=== PATIENT | male | born 1945 | race Caucasian/White ===

== ENCOUNTER 2019-08-14 08:49 | Outpatient (REF) | payer MEDICARE, SELFPAY ==
[2019-08-14 19:44] LABS: ALT 35 U/L (16-63); Anion Gap 6.7 mmol/L (3-11); BUN 23 mg/dL (7-18); CO2 27.3 mmol/L (21.0-32.0); CREATININE 0.93 mg/dL (0.70-1.30); Calcium 8.9 mg/dL (8.5-10.1); Calculated LDL 154 mg/dL (<100); Chloride 107 mmol/L (98-107); Cholesterol 210 mg/dL (<200); Glucose 108 mg/dL (74-106); HDL Cholesterol 34 mg/dL (40-60); Sodium 141 mmol/L (136-145); Triglyceride 110 mg/dL (<150)
[2019-08-14 20:02] LABS: Creatine Kinase 244 U/L (39-308)
== END 2019-08-14 09:09 ==
LOC: NCHCN 08:49
PROVIDERS: PCP Physician Assistant; Visit Provider Internal Medicine
DX: I10 Essential (primary) hypertension (principal); E78.5 Hyperlipidemia, unspecified
CPT/HCPCS: 80048; 80061; 82550; 84460

== ENCOUNTER 2020-02-18 18:33 | Outpatient (REF) | payer MEDICARE, MEDICAID, SELFPAY ==
[2020-02-18 20:23] LABS: Abs Immature Grans 0.01 10^3/uL (0.0-0.06); Absolute Basophil Count 0.06 10^3/uL (0.0-0.2); Absolute Eosinophil Count 0.25 10^3/uL (0.0-0.7); Absolute Lymphocyte Count 1.33 10^3/uL (1.2-3.4); Absolute Monocyte Count 0.47 10^3/uL (0.1-0.8); Absolute Neutrophil Count 3.88 10^3/uL (1.2-6.7); Eosinophils % 4.2; HCT 47.5 % (40.0-50.0); HGB 15.1 g/dL (13.5-17.5); Immature Grans % 0.2; Lymphocytes % 22.2; MCH 26.5 pg (27.0-33.0); MCHC 31.8 % (32.0-36.0); MCV 83.3 fL (80-95); MPV 10.4 fL (8.0-11.0); Monocytes % 7.8; Neutrophils % 64.6; Nucleated RBC 0 %; Platelet Count 239 10^3/uL (130-400); RDW-SD 42.5 fL
[2020-02-18 20:48] LABS: ALT 32 U/L (16-63); AST 20 U/L (15-37); Albumin 3.9 g/dL (3.4-5.0); Alkaline Phosphatase 72 U/L (46-116); Anion Gap 3.5 mmol/L (3-11); BUN 21 mg/dL (7-18); Bilirubin, Total 0.5 mg/dL (0.2-1.0); CO2 28.5 mmol/L (21.0-32.0); CREATININE 1.02 mg/dL (0.70-1.30); Chloride 105 mmol/L (98-107); Glucose 104 mg/dL (74-106); Potassium 4.5 mmol/L (3.5-5.1); Sodium 137 mmol/L (136-145); Total Protein 7.1 g/dL (6.4-8.2)
[2020-02-18 21:05] LABS: Calculated LDL 178 mg/dL (<100); Cholesterol 242 mg/dL (<200); HDL Cholesterol 32 mg/dL (40-60); Triglyceride 164 mg/dL (<150)
[2020-02-20 09:49] LABS: Hepatitis C Ab w Rflx HCV PCR Negative (Negative)
== END 2020-02-18 18:53 ==
LOC: NCHCN 18:33
PROVIDERS: PCP Physician Assistant; Visit Provider Physician Assistant
DX: E78.5 Hyperlipidemia, unspecified (principal); I10 Essential (primary) hypertension; I25.5 Ischemic cardiomyopathy; I25.810 Atherosclerosis of coronary artery bypass graft(s) without angina pectoris; Z11.59 Encounter for screening for other viral diseases
CPT/HCPCS: 80053; 80061; 86803; 85025

== ENCOUNTER 2020-03-18 10:20 | Outpatient (CLI) | payer MEDICARE, MEDICAID, SELFPAY ==
--- NOTE | 2020-03-18 09:45 | DI.RAD_ITS ---
EXAM: XR SHOULDER RT COMPLETE 2+V CLINICAL HISTORY: BIcep ain. TECHNIQUE: 2D digital imaging was performed. COMPARISON: No exams were available for comparison FINDINGS: BONES: No acute fracture is present. No bony destructive lesion is seen. There is prominent spurring at the undersurface of the acromion. There is also spurring at the AC joint and glenoid. Glenohumer al joint space is well maintained. Spurring is noted at the greater and lesser tuberosities. SOFT TISSUE: Normal. IMPRESSION: Degenerative changes. DATA REPOSITORY: RADIATION DOSE DELIVERED:
== END 2020-03-18 10:40 ==
PROVIDERS: PCP Physician Assistant; Referring Provider Physician Assistant; Visit Provider Student in an Organized Health Care Education/Training Program
DX: M77.8 Other enthesopathies, not elsewhere classified (principal); M25.511 Pain in right shoulder; S46.211A Strain of muscle, fascia and tendon of other parts of biceps, right arm, initial encounter; X50.0XXA Overexertion from strenuous movement or load, initial encounter; I10 Essential (primary) hypertension
CPT/HCPCS: 99203; 73030

== ENCOUNTER 2020-04-30 20:20 | Outpatient (REF) | payer MEDICARE, MEDICAID, SELFPAY ==
[2020-05-02 14:49] LABS: COVID-19 RT-PCR UVMMC Result Negative (Negative)
== END 2020-04-30 20:21 | disposition home or self-care (01) ==
LOC: NCHCN 20:20
PROVIDERS: PCP Physician Assistant; Visit Provider Physician Assistant
DX: Z20.822 Contact with and (suspected) exposure to COVID-19 (principal); J06.9 Acute upper respiratory infection, unspecified
CPT/HCPCS: U0003

== ENCOUNTER 2020-06-06 09:52 | Outpatient (CLI) | payer MEDICARE, MEDICAID, SELFPAY ==
--- NOTE | 2020-06-06 15:35 | DI.RAD_ITS ---
EXAM: XR ELBOW LT COMPLETE CLINICAL HISTORY: HARD FALL ON ICE, PAIN TECHNIQUE: COMPARISON: No exams were available for comparison FINDINGS: Three views were obtained. There is somewhat prominent anterior humeral fat pad raising the possibil ity of an elbow joint effusion or hemarthrosis. There are small marginal osteophytes at multiple sit es involving the joints of the elbow and small olecranon osteophyte is noted. No definite fracture i dentified, however the presence of a joint effusion would raise the possibility an occult intra-artic ular fracture. Follow-up radiographs recommended in 10-14 days if symptoms persist. IMPRESSION: RADIATION DOSE DELIVERED: Total DLP
== END 2020-06-06 10:12 ==
PROVIDERS: PCP Physician Assistant; Visit Provider Internal Medicine
DX: M25.522 Pain in left elbow (principal)
CPT/HCPCS: 73080

== ENCOUNTER 2020-08-14 10:07 | Outpatient (REF) | payer MEDICARE, SELFPAY ==
[2020-08-14 18:45] LABS: ALT 32 U/L (16-63); AST 21 U/L (15-37); Albumin 3.7 g/dL (3.4-5.0); Alkaline Phosphatase 70 U/L (46-116); Anion Gap 5.6 mmol/L (3-11); BUN 27 mg/dL (7-18); Bilirubin, Total 0.7 mg/dL (0.2-1.0); CO2 27.4 mmol/L (21.0-32.0); Calcium 8.9 mg/dL (8.5-10.1); Calculated LDL 78 mg/dL (<100); Chloride 107 mmol/L (98-107); Cholesterol 127 mg/dL (<200); Glucose 96 mg/dL (74-106); HDL Cholesterol 36 mg/dL (40-60); Potassium 5.2 mmol/L (3.5-5.1); Sodium 140 mmol/L (136-145); Total Protein 6.7 g/dL (6.4-8.2); Triglyceride 69 mg/dL (<150)
== END 2020-08-14 10:08 | disposition home or self-care (01) ==
LOC: NCHCN 10:07
PROVIDERS: PCP Physician Assistant; Visit Provider Physician Assistant
DX: I10 Essential (primary) hypertension (principal); E78.5 Hyperlipidemia, unspecified
CPT/HCPCS: 80053; 80061

== ENCOUNTER 2021-03-12 11:42 | Outpatient (REF) | payer MEDICARE, MEDICAID, SELFPAY ==
[2021-03-12 19:29] LABS: ALT 40 U/L (16-63); AST 21 U/L (15-37); Albumin 3.8 g/dL (3.4-5.0); Alkaline Phosphatase 76 U/L (46-116); Anion Gap 7.3 mmol/L (3-11); BUN 20 mg/dL (7-18); Bilirubin, Total 0.6 mg/dL (0.2-1.0); CO2 27.7 mmol/L (21.0-32.0); CREATININE 0.9 mg/dL (0.70-1.30); Calcium 8.9 mg/dL (8.5-10.1); Calculated LDL 94 mg/dL (<100); Chloride 104 mmol/L (98-107); Cholesterol 148 mg/dL (<200); Glucose 108 mg/dL (74-106); HDL Cholesterol 39 mg/dL (40-60); Potassium 4.6 mmol/L (3.5-5.1); Sodium 139 mmol/L (136-145); Total Protein 6.8 g/dL (6.4-8.2); Triglyceride 76 mg/dL (<150)
[2021-03-13 17:23] LABS: PSA, Screening 3.2 ng/mL (0.0-6.5)
== END 2021-03-12 11:43 | disposition home or self-care (01) ==
LOC: NCHCN 11:42
PROVIDERS: PCP Physician Assistant; Visit Provider Nurse Practitioner Family
DX: E78.5 Hyperlipidemia, unspecified (principal); N40.0 Benign prostatic hyperplasia without lower urinary tract symptoms; I10 Essential (primary) hypertension; I25.5 Ischemic cardiomyopathy; Z12.5 Encounter for screening for malignant neoplasm of prostate
CPT/HCPCS: 80053; 80061; 84153

== ENCOUNTER 2021-08-27 09:25 | Emergency (ER) | payer MEDICARE, MEDICAID, SELFPAY ==
[2021-08-27 09:36] VITALS: BP 131/67; PULSE 68; RESP 14; TEMP 36.6; O2SAT 98
--- NOTE | 2021-08-27 09:42 | ED.GENADUL_ITS ---
Discharge Plan Disposition Patient Disposition: HOME Condition: Stable Discharge Details Clinical Impression: Closed fracture of fifth metacarpal bone of left hand Primary Care Provider: James Sierra ED Provider: Vanessa Nash Home Meds and New Rx's Prescriptions: Continued aspirin [Adult Low Dose Aspirin] 81 mg tablet,delayed release (DR/EC) 81 mg PO DAILY tamsulosin 0.4 mg capsule 0.4 mg PO DAILY metoprolol succinate 25 mg tablet extended release 24 hr 25 mg PO BID atorvastatin 40 mg tablet 40 mg PO DAILY venlafaxine [Effexor XR] 150 mg capsule,extended release 24hr 150 mg PO DAILY lisinopril 5 mg tablet 5 mg PO DAILY Discharge Instructions Instructions: Hand Fracture (ED) Additional Instructions: Your x-ray revealed a fracture of your fifth metacarpal bone within your left hand. This was reviewed with orthopedics and they recommended a splint which was placed here in the emergency department. Rest, ice, and elevate the affected area as much as possible. Alternate tylenol and motrin as needed and directed for pain. Call the orthopedist today to schedule a follow-up appointment for reevaluation. Return immediately to the emergency department if you develop any worsening or new concerning symptoms. Referrals: Jaspreet Lam MD [ [facility] STAFF PHYSICIAN] - Discharge Data Discharge Physician: Vanessa Nash Medical Decision Making 76-year-old male presents with left hand injury sustained when jacking up a trailer and the brian came down crushing his hand yesterday. Patient has edema and ecchymosis noted to the palmar and dorsal hand. He has an abrasion on the left lateral wrist and small approximated superficial lacerations with a small hematomas on the palmar hand. He is neurovascularly intact without deformity. He declines pain medication here. Patient referred for x-rays which noted a fracture of the fifth metacarpal. This was reviewed with orthopedics who noted that this fracture is nondisplaced and recommended an ulnar gutter splint which was placed at bedside. Sling also provided. Patient placed on orthopedic follow-up list. Instructed on the importance of RICE. Usual and customary return precautions given prior to discharge. Medical Records Medical records reviewed: Yes I reviewed the patient's medical records. Imaging Data Radiologic Study: Radiologist's impression: XR HAND LT COMPLETE CLINICAL HISTORY: ? s/p crush injury, r/o fx metacarpals.? TECHNIQUE:? 2D digital imaging was performed.? Three views. COMPARISON:? CR XR WRIST LT COMPLETE from 08/27/2021 FINDINGS: BONES: Fracture at the base of the 5th metacarpal with mild angulation.? No visible extension to the articular surface.? No additional fractures seen..? No bony destructive lesion is seen. JOINTS: No dislocation present. ? Degenerative changes of interphalangeal joints and at the 1st carpal metacarpal joint. SOFT TISSUE: Posterior swelling.? Vascular calcifications IMPRESSION: Fracture at the base of the 5th metacarpal. XR WRIST LT COMPLETE CLINICAL HISTORY: ? s/p crush injury, r/o fx.? TECHNIQUE:? 2D digital imaging was performed.? Three views. COMPARISON:? No exams were available for comparison FINDINGS: BONES:? fracture at the base of the 5th metacarpal with some ventral angulation but no significant displacement.? No visible extension to the articular surface..? No bony destructive lesion is seen. JOINTS: Degenerative changes at 1st carpal metacarpal joint.? Some lateral subluxation of the 1st metacarpal.? SOFT TISSUE: Posterior swelling.? Vascular calcifications. IMPRESSION: Fracture at the base of the 5th metacarpal.? HPI General Mode of arrival: ambulatory . Date/Time Provider Initiated Documentation: 08/27/21 09:41 . Limitations to Documentation: no limitations . Information obtained by: patient . HPI Narrative: Patient is a 76-year-old male with a history of hypertension, hyperlipidemia, NSTEMI, cardiomyopathy, coronary artery bypass graft surgery presents with left hand injury sustained yesterday when jacking up a trailer and the brian came back down on his hand. He states it was approximately 100 pounds of weight. He states he took aspirin and Aleve this morning. He states he thinks his tetanus is up-to-date. Related Data Home Medications Medication Instructions Recorded Confirmed aspirin 81 mg tablet,delayed 81 mg PO DAILY 03/18/20 03/18/20 release (Adult Low Dose Aspirin) atorvastatin 40 mg tablet 40 mg PO DAILY 03/18/20 03/18/20 lisinopril 5 mg tablet 5 mg PO DAILY 03/18/20 03/18/20 metoprolol succinate 25 mg 25 mg PO BID 03/18/20 03/18/20 tablet,extended release 24 hr tamsulosin 0.4 mg capsule 0.4 mg PO DAILY 03/18/20 03/18/20 venlafaxine 150 mg 150 mg PO DAILY 03/18/20 03/18/20 capsule,extended release 24 hr (Effexor XR) Allergies Allergy/AdvReac Type Severity Reaction Status Date / Time bupropion [From Wellbutrin] Allergy Unverified 08/27/21 09:40 General Stated Complaint: Orthopedic FERNIE: 4 Review of Systems All systems reviewed & are unremarkable except as noted in HPI and below Constitutional Constitutional: Reports as per HPI, Denies chills and Denies fever(s) Eyes Eyes: Denies blurry vision ENT Ears, Nose, Mouth, and Throat: Denies dizziness, Denies sore throat and Denies throat swelling Cardiovascular Cardiovascular: Denies chest pain and Denies dyspnea Respiratory Respiratory: Denies cough and Denies dyspnea Gastrointestinal Gastrointestinal: Denies abdominal pain, Denies diarrhea and Denies vomiting Genitourinary Genitourinary: Denies hematuria and Denies dysuria Musculoskeletal Musculoskeletal: Denies back pain and Denies numbness Integumentary/Breasts Skin/Breast: Denies lesions and Denies rash Neurologic Neurologic: Denies dizziness, Denies localized weakness and Denies numbness Allergic/Immunologic Allergic/Immunologic: Denies throat swelling PFSH All Active Problems (Updated 08/27/21 @ 10:54 by Vanessa Nash DO) Closed fracture of fifth metacarpal bone of left hand (Acute) Rupture of right proximal biceps tendon (Acute 03/07/20) Depression with anxiety (Acute) Hypertension (Chronic) Hx of non-ST elevation myocardial infarction (NSTEMI) (Acute) BPH (benign prostatic hyperplasia) (Chronic) Status post coronary artery bypass graft (Acute) Cardiomyopathy (Acute) Hyperlipidemia (Acute) Social History Smoking/Tobacco Use Status: Never Smoking risk assessment performed?: Yes Alcohol Intake: current Alcohol Intake frequency: a few times a month Alcohol type: beer Drug use: Socially Substance use type: marijuana Current gender identity: male Do you feel safe at home: Yes Do you feel safe in your relationship?: Yes Exam Const General: cooperative, healthy appearing and no acute distress Orientation: alert, awake and oriented x3 HENMT Head: normal to inspection Mouth: oral mucosae normal Eyes General: appearance normal, both eyes and all related structures Neck Neck: normal visual inspection Resp Effort & Inspection: normal respiratory effort and able to speak in complete sentences Cardio Rate: regular rate Skin General skin exam: no rashes or lesions noted Neuro General: patient alert, patient awake and patient oriented x3 Motor: muscle tone normal throughout Extrem Hand/finger images: 1. Edema. 2. Edema and ecchymosis. 3. Superficial abrasion. 4. 2mm approximated superficial laceration/hematoma 5. 2mm approximated superficial laceration/hematoma Other: Left upper extremity: Tenderness to palpation overlying dorsal and palmar hand. No tenderness to palpation of fingers. Tenderness to palpation on dorsal wrist. No scaphoid tenderness. Left radial and ulnar pulses intact. No deformity. Normal ROM of Left wrist. Psych Appearance: grossly normal Affect: normal affect Course Vital Signs Vital signs: Vital Signs Temperature 97.9 F 08/27/21 09:36 Pulse 68 08/27/21 09:36 Respiratory Rate 14 08/27/21 09:36 Blood Pressure 131/67 08/27/21 09:36 Pulse Oximetry 98 08/27/21 09:36 Temperature 97.9 F 08/27/21 09:36 Temperature Source Temporal Artery Scan 08/27/21 09:36 Pulse 68 08/27/21 09:36 Respiratory Rate 14 08/27/21 09:36 Blood Pressure 131/67 08/27/21 09:36 Blood Pressure Position Sitting 08/27/21 09:36 Pulse Oximetry 98 08/27/21 09:36 Oxygen Delivery Method Room Air 08/27/21 09:36 Oxygen Flow Rate 0 08/27/21 09:36 Pain Level 2 08/27/21 09:36 Comment 08/27/21 09:36
--- NOTE | 2021-08-27 10:03 | DI.RAD_ITS ---
Exam(s) XR HAND LT COMPLETE EXAM: XR HAND LT COMPLETE CLINICAL HISTORY: s/p crush injury, r/o fx metacarpals. TECHNIQUE: 2D digital imaging was performed. Three views. COMPARISON: CR XR WRIST LT COMPLETE from 08/27/2021 FINDINGS: BONES: Fracture at the base of the 5th metacarpal with mild angulation. No visible extension to the articular surface. No additional fractures seen.. No bony destructive lesion is seen. JOINTS: No dislocation present. Degenerative changes of interphalangeal joints and at the 1st carpa l metacarpal joint. SOFT TISSUE: Posterior swelling. Vascular calcifications IMPRESSION: Fracture at the base of the 5th metacarpal. DATA REPOSITORY: RADIATION DOSE DELIVERED:
--- NOTE | 2021-08-27 10:03 | DI.RAD_ITS ---
Exam(s) XR WRIST LT COMPLETE EXAM: XR WRIST LT COMPLETE CLINICAL HISTORY: s/p crush injury, r/o fx. TECHNIQUE: 2D digital imaging was performed. Three views. COMPARISON: No exams were available for comparison FINDINGS: BONES: fracture at the base of the 5th metacarpal with some ventral angulation but no significant di splacement. No visible extension to the articular surface.. No bony destructive lesion is seen. JOINTS: Degenerative changes at 1st carpal metacarpal joint. Some lateral subluxation of the 1st met acarpal. SOFT TISSUE: Posterior swelling. Vascular calcifications. IMPRESSION: Fracture at the base of the 5th metacarpal. DATA REPOSITORY: RADIATION DOSE DELIVERED:
[2021-08-27 11:02] VITALS: PULSE 60; RESP 14; O2SAT 99
== END 2021-08-27 11:03 | disposition home or self-care (01) ==
PROVIDERS: Emergency Provider Physician Assistant; PCP Nurse Practitioner Family
DX: S62.397A Other fracture of fifth metacarpal bone, left hand, initial encounter for closed fracture (principal); W24.0XXA Contact with lifting devices, not elsewhere classified, initial encounter
CPT/HCPCS: 29125; 90471; 99284; 73110; 73130; 99283

== ENCOUNTER 2021-09-09 08:44 | Outpatient (CLI) | payer MEDICARE, MEDICAID, SELFPAY ==
--- NOTE | 2021-09-09 08:30 | DI.RAD_ITS ---
Exam(s) XR HAND LT COMPLETE EXAM: XR HAND LT COMPLETE CLINICAL HISTORY: L hand fx. TECHNIQUE: 2D digital imaging was performed. Three views. COMPARISON: CR XR HAND LT COMPLETE from 08/27/2021 FINDINGS: BONES: There has been no change in the alignment of the previously noted fracture at the base of the 5th metacarpal.. No bony destructive lesion is seen. JOINTS: No dislocation present. SOFT TISSUE: Decreased soft tissue swelling compared to prior. IMPRESSION: Stable appearance of fracture of the proximal 5th metacarpal. DATA REPOSITORY: RADIATION DOSE DELIVERED:
== END 2021-09-09 08:45 | disposition home or self-care (01) ==
LOC: DIORS 08:44
PROVIDERS: PCP Internal Medicine; Referring Provider Internal Medicine; Visit Provider Physician Assistant
DX: S62.307A Unspecified fracture of fifth metacarpal bone, left hand, initial encounter for closed fracture (principal); X58.XXXA Exposure to other specified factors, initial encounter
CPT/HCPCS: 99213; 73130

== ENCOUNTER 2021-09-20 10:05 | Inpatient (IN) | payer MEDICARE, MEDICAID, SELFPAY ==
[2021-09-20] VITALS (8 sets, daily range): BP systolic 106–171; BP diastolic 60–94; PULSE 73–108; RESP 16–20; TEMP 36.7–39; O2SAT 95–97
--- NOTE | 2021-09-20 12:05 | ED.GENADUL_ITS ---
Discharge Plan Disposition Patient Disposition: [facility] INPATIENT Condition: Serious Discharge Details Clinical Impression: Cellulitis of arm, left Primary Care Provider: Jacky Gil ED Provider: Bean Perez [place] Meds and New Rx's Prescriptions: No Action aspirin [Adult Low Dose Aspirin] 81 mg tablet,delayed release (DR/EC) 81 mg PO DAILY tamsulosin 0.4 mg capsule 0.4 mg PO DAILY metoprolol succinate 25 mg tablet extended release 24 hr 25 mg PO BID atorvastatin 40 mg tablet 40 mg PO DAILY venlafaxine [Effexor XR] 150 mg capsule,extended release 24hr 150 mg PO DAILY lisinopril 5 mg tablet 5 mg PO DAILY Medical Decision Making This is a 76-year-old, [id number], tetanus status up-to-date, presenting to the ER for left arm infection that he sustained a few days ago. In the waiting room he developed rigors and a fever. Clinically this appears to be a cellulitis secondary to central wound with associated bursitis, low suspicion for acute osteomyelitis, septic joint or septic bursitis. Plan is to obtain a septic work-up, give IV fluid and IV Rocephin once blood cultures are obtained. Will obtain x-ray as well. Will provide 1 g p.o. Tylenol Laboratory values reveal white blood cell count of 14.56 absolute neutrophils 12.41, lactate 1.4 electrolytes unremarkable, normal renal function, ESR 17, CRP 7.66, COVID-negative. Chest x-ray reveals soft tissue swelling. Case discussed with orthopedics, Dr. Valle. He was able to review the case as well as images of the arm and elbow. He stated to treat with IV antibiotics and admit to our hospitalist service. He does not feel this is surgical at this time. MRI if symptoms or not improving in the near future. Case was then discussed with Dr. Weaver who is agreeable to admission and recommends giving a second gram of Rocephin as well as initiating vancomycin. Both of these antibiotics were given in the ER. This documentation was generated using [employer] system, please disregard any oddities of phrase or misspellings. Medical Records Medical records reviewed: Yes I reviewed the patient's medical records. Imaging Data Radiologic Study: Attestation: I personally reviewed and interpreted this imaging study as follows: Imaging: X-Ray Radiologist's impression: PROCEDURE INFORMATION: Exam: XR Left Elbow Exam date and time: 09/20/2021 1:41 PM Age: 76 years old Clinical indication: Other: Injury 3 days ago, now infected TECHNIQUE: Imaging protocol: Radiologic exam of the Left elbow. Views: 3 or more views. COMPARISON: CR XR ELBOW LT COMPLETE 04/10/2020 15:32 FINDINGS: Bones/joints: No acute fracture or dislocation. No joint effusion. Soft tissues: Extensive soft tissue swelling medial and posterior aspect of the elbow and lower arm. IMPRESSION: 1. No evidence for acute bony injury. If clinical symptoms persist recommend followup film in 7-10 days. 2. Marked soft tissue swelling. Lab Data Lab results reviewed: Yes I reviewed the patient's lab results. Labs: 09/20/21 12:30 Blood Blood Culture - Pending 09/20/21 12:45 Blood Blood Culture - Pending Laboratory Tests Range/Units 09/20/21 09/20/21 09/20/21 12:45 12:45 12:45 WBC (4.4-10.8) 10^3/uL RBC (4.36-5.78) 10^6/uL Hgb (13.5-17.5) g/dL Hct (40.0-50.0) % MCV (80-95) fL MCH (27.0-33.0) pg MCHC (32.0-36.0) % RDW (11.8-14.1) % Plt Count (130-400) 10^3/uL MPV (8.0-11.0) fL Immature Gran % Neutrophils % Lymphocytes % Monocytes % Eosinophils % Basophils % Nucleated RBC % (0.0-0.3) % Absolute Neutrophils (1.2-6.7) 10^3/uL Absolute Lymphocytes (1.2-3.4) 10^3/uL Absolute Monocytes (0.1-0.8) 10^3/uL Absolute Eosinophils (0.0-0.7) 10^3/uL Absolute Basophils (0.0-0.2) 10^3/uL ESR (0-20) mm/hr 17 VBG Lactate (0.6-1.4) mmol/L 1.4 Sodium (136-145) mmol/L 136 Potassium (3.5-5.1) mmol/L 4.5 Chloride (98-107) mmol/L 102 Carbon Dioxide (21.0-32.0) mmol/L 25.0 Anion Gap (3-11) mmol/L 9.0 BUN (7-18) mg/dL 23 H Creatinine (0.70-1.30) mg/dL 1.0 Estimated GFR/1.73 m2 (mL/min/1.73m2) >= 60.00 Glucose (74-106) mg/dL 96 Calcium (8.5-10.1) mg/dL 8.7 Total Bilirubin (0.2-1.0) mg/dL 0.8 AST (15-37) U/L 24 ALT (16-63) U/L 37 Alkaline Phosphatase (46-116) U/L 80 C-Reactive Protein (0.0-0.3) mg/dL 7.66 H Total Protein (6.4-8.2) g/dL 7.5 Albumin (3.4-5.0) g/dL 3.8 COVID-19 Source SARS-CoV-2 (PCR) (Negative) Add-On Test Request Range/Units 09/20/21 09/20/21 09/20/21 12:45 12:50 14:48 WBC (4.4-10.8) 10^3/uL 14.56 H RBC (4.36-5.78) 10^6/uL 5.18 Hgb (13.5-17.5) g/dL 13.9 Hct (40.0-50.0) % 43.0 MCV (80-95) fL 83 MCH (27.0-33.0) pg 26.8 L MCHC (32.0-36.0) % 32.3 RDW (11.8-14.1) % 14.7 H Plt Count (130-400) 10^3/uL 234 MPV (8.0-11.0) fL 9.9 Immature Gran % 0.5 Neutrophils % 85.2 Lymphocytes % 5.7 Monocytes % 7.3 Eosinophils % 1.0 Basophils % 0.3 Nucleated RBC % (0.0-0.3) % 0.0 Absolute Neutrophils (1.2-6.7) 10^3/uL 12.41 H Absolute Lymphocytes (1.2-3.4) 10^3/uL 0.83 L Absolute Monocytes (0.1-0.8) 10^3/uL 1.06 H Absolute Eosinophils (0.0-0.7) 10^3/uL 0.15 Absolute Basophils (0.0-0.2) 10^3/uL 0.04 ESR (0-20) mm/hr VBG Lactate (0.6-1.4) mmol/L Sodium (136-145) mmol/L Potassium (3.5-5.1) mmol/L Chloride (98-107) mmol/L Carbon Dioxide (21.0-32.0) mmol/L Anion Gap (3-11) mmol/L BUN (7-18) mg/dL Creatinine (0.70-1.30) mg/dL Estimated GFR/1.73 m2 (mL/min/1.73m2) Glucose (74-106) mg/dL Calcium (8.5-10.1) mg/dL Total Bilirubin (0.2-1.0) mg/dL AST (15-37) U/L ALT (16-63) U/L Alkaline Phosphatase (46-116) U/L C-Reactive Protein (0.0-0.3) mg/dL Total Protein (6.4-8.2) g/dL Albumin (3.4-5.0) g/dL COVID-19 Source Nasal/Nares SARS-CoV-2 (PCR) (Negative) Negative Add-On Test Request TNP HPI General Mode of arrival: ambulatory . Date/Time Provider Initiated Documentation: 09/20/21 10:26 . Limitations to Documentation: no limitations . Information obtained by: patient . History of Present Illness 76 year old M presents to the emergency department with the chief complaint of L elbow infection, described as moderate, with intensity rated at 5. Quality is described as aching, and is localized to the left and upper extremity. Patient reports no radiation. Patient started experiencing this day(s) (3) and it has been other (worsening). Immobilization improves symptom(s), Movement worsens symptoms . Patient notes fever/chills (chills) and weakness (generalized). Patient did receive the following treatments prior to arrival, none Related Data Home Medications Medication Instructions Recorded Confirmed aspirin 81 mg tablet,delayed 81 mg PO DAILY 03/18/20 09/20/21 release (Adult Low Dose Aspirin) atorvastatin 40 mg tablet 40 mg PO DAILY 03/18/20 09/20/21 lisinopril 5 mg tablet 5 mg PO DAILY 03/18/20 09/20/21 metoprolol succinate 25 mg 25 mg PO BID 03/18/20 09/20/21 tablet,extended release 24 hr tamsulosin 0.4 mg capsule 0.4 mg PO DAILY 03/18/20 09/20/21 venlafaxine 150 mg 150 mg PO DAILY 03/18/20 09/20/21 capsule,extended release 24 hr (Effexor XR) Allergies Allergy/AdvReac Type Severity Reaction Status Date / Time bupropion [From Wellbutrin] Allergy Unverified 09/20/21 12:12 General Stated Complaint: Cellulitis FERNIE: 3 Review of Systems Constitutional Constitutional: Reports chills, Denies fatigue, Denies fever(s), Denies headache(s) and Reports weakness (Generalized) ENT Ears, Nose, Mouth, and Throat: Denies headache(s) Cardiovascular Cardiovascular: Denies chest pain Respiratory Respiratory: Denies cough Gastrointestinal Gastrointestinal: Denies abdominal pain, Denies nausea and Denies vomiting Musculoskeletal Musculoskeletal: Denies arthralgias, Denies numbness, Reports stiffness and Denies tingling Integumentary/Breasts Skin/Breast: Reports erythema Neurologic Neurologic: Denies headache(s), Denies numbness, Denies tingling and Reports weakness (Generalized) Endocrine Endocrine: Denies fatigue Hematologic/Lymphatic Hematologic/Lymphatic: Denies easy bleeding and Denies easy bruising PFSH All Active Problems Cellulitis of arm, left (Acute) Closed fracture of fifth metacarpal bone of left hand (Acute 08/27/21) Rupture of right proximal biceps tendon (Acute 03/07/20) Depression with anxiety (Acute) Hypertension (Chronic) Hx of non-ST elevation myocardial infarction (NSTEMI) (Acute) BPH (benign prostatic hyperplasia) (Chronic) Status post coronary artery bypass graft (Acute) Cardiomyopathy (Acute) Hyperlipidemia (Acute) Social History Smoking/Tobacco Use Status: Never Smoking risk assessment performed?: Yes Alcohol Intake: current Alcohol Intake frequency: a few times a month Alcohol type: beer Drug use: Socially Substance use type: marijuana Current gender identity: male Do you feel safe at home: Yes Do you feel safe in your relationship?: Yes Exam Const General: cooperative and comfortable Orientation: alert, awake and oriented x3 HENMT Head: normal to inspection, normocephalic and atraumatic Face and sinus: normal facial exam Mouth: moist mucous membranes Eyes General: appearance normal, both eyes and all related structures Conjunctivae: conjunctivae normal Neck Neck: normal visual inspection, full ROM, no meningeal signs, trachea midline and supple Resp Effort & Inspection: normal respiratory effort and able to speak in complete sentences Auscultation: clear to auscultation bilaterally Cardio Rate: regular rate Rhythm: regular rhythm Back/Spine/Pelvis Back: No back tenderness Skin General skin exam: erythema Neuro General: patient alert, patient awake, moves all extremities and no focal motor deficits Cognition: normal cognition Speech: speech normal Gait: normal gait Motor: muscle tone normal throughout Sensory Exam: no sensory deficits noted Extrem General: full ROM and capillary refill normal Other: Left arm, elbow posterior aspect with diffuse mild swelling, erythema, warmth, centrally there is a shallow wound with dried blood. There is surrounding erythema in all aspects but this is noncircumferential. Sterile markings were made. There is no lymphangitic streaking. There is no bony point tenderness, evidence of septic joint. There does appear to be some swelling associated with the olecranon bursa and there very well may be a component of bursitis but clinically no signs of a septic bursitis. Neuro, vascular, tendon intact. Psych Appearance: grossly normal Mental Status: mental status grossly normal Course Vital Signs Vital signs: Vital Signs Temperature 37.2 C 09/20/21 10:22 Pulse 73 09/20/21 10:22 Respiratory Rate 18 09/20/21 10:22 Blood Pressure 146/81 H 09/20/21 10:22 Pulse Oximetry 97 09/20/21 10:22 Temperature 37.2 C 09/20/21 10:22 Temperature Source Temporal Artery Scan 09/20/21 10:22 Pulse 73 09/20/21 10:22 Respiratory Rate 18 09/20/21 10:22 Blood Pressure 146/81 H 09/20/21 10:22 Blood Pressure Position Sitting 09/20/21 10:22 Pulse Oximetry 97 09/20/21 10:22 Oxygen Delivery Method Room Air 09/20/21 10:22 Oxygen Flow Rate 0 07/17/22 10:22
[2021-09-20 12:52] LABS: Source Nasal/Nares
[2021-09-20 12:56] LABS: Abs Immature Grans 0.08 10^3/uL (0.0-0.06); Absolute Lymphocyte Count 0.83 10^3/uL (1.2-3.4); Absolute Monocyte Count 1.06 10^3/uL (0.1-0.8); Basophils % 0.3; HGB 13.9 g/dL (13.5-17.5); Immature Grans % 0.5; Lactate 1.4 mmol/L (0.6-1.4); Lymphocytes % 5.7; MCH 26.8 pg (27.0-33.0); MCHC 32.3 % (32.0-36.0); MCV 83 fL (80-95); MPV 9.9 fL (8.0-11.0); Monocytes % 7.3; Neutrophils % 85.2; Platelet Count 234 10^3/uL (130-400); RBC 5.18 10^6/uL (4.36-5.78); RDW 14.7 % (11.8-14.1); RDW-SD 45.1 fL; WBC 14.56 10^3/uL (4.4-10.8)
[2021-09-20 13:00] LABS: Absolute Basophil Count 0.04 10^3/uL (0.0-0.2); Absolute Eosinophil Count 0.15 10^3/uL (0.0-0.7); Absolute Neutrophil Count 12.41 10^3/uL (1.2-6.7)
[2021-09-20] MEDS: Normal Saline 1,000 ML 1000 ML IV (13:00)
[2021-09-20 13:01] LABS: ESR 17 mm/hr (0-20)
[2021-09-20] MEDS: Acetaminophen 500 MG TAB 1000 MG PO (13:01)
[2021-09-20] MEDS: cefTRIAXone 1 GM/50 ML BAG 200 GM (13:10)
--- NOTE | 2021-09-20 13:15 | DI.RAD_ITS ---
Exam(s) XR ELBOW LT COMPLETE EXAM: XR ELBOW LT COMPLETE CLINICAL HISTORY: injury 3 days ago, now infected. TECHNIQUE: 2D digital imaging was performed. COMPARISON: CR XR ELBOW LT COMPLETE from 06/06/2020 FINDINGS: 3 views There is prominent soft tissue swelling over the posterior aspect of the upper arm and elbow and fore arm upper half no fractures. No elbow joint effusion noted. No radiopaque foreign body. No radiogr aphic evidence of osteomyelitis. IMPRESSION: Marked soft tissue swelling. No fractures. No radiopaque foreign body. No radiographic evidence of osteomyelitis. DATA REPOSITORY: RADIATION DOSE DELIVERED:
[2021-09-20 13:49] LABS: ALT 37 U/L (16-63); AST 24 U/L (15-37); Albumin 3.8 g/dL (3.4-5.0); Alkaline Phosphatase 80 U/L (46-116); BUN 23 mg/dL (7-18); Bilirubin, Total 0.8 mg/dL (0.2-1.0); C-Reactive Protein 7.66 mg/dL (0.0-0.3); Calcium 8.7 mg/dL (8.5-10.1); Chloride 102 mmol/L (98-107); Glucose 96 mg/dL (74-106); Potassium 4.5 mmol/L (3.5-5.1); Sodium 136 mmol/L (136-145); Total Protein 7.5 g/dL (6.4-8.2)
[2021-09-20 13:52] LABS: COVID-19 PCR Negative (Negative)
--- NOTE | 2021-09-20 14:06 | DI.VRAD_ITS ---
PROCEDURE INFORMATION: Exam: XR Left Elbow Exam date and time: 09/20/2021 1:41 PM Age: 76 years old Clinical indication: Other: Injury 3 days ago, now infected TECHNIQUE: Imaging protocol: Radiologic exam of the Left elbow. Views: 3 or more views. COMPARISON: CR XR ELBOW LT COMPLETE 04/10/2020 15:32 FINDINGS: Bones/joints: No acute fracture or dislocation. No joint effusion. Soft tissues: Extensive soft tissue swelling medial and posterior aspect of the elbow and lower arm. IMPRESSION: 1. No evidence for acute bony injury. If clinical symptoms persist recommend followup film in 7-10 days. 2. Marked soft tissue swelling. Dictated and Authenticated by: Yessy Juarez MD. Ordering:MICHELLE Del Angel MD
[2021-09-20] MEDS: cefTRIAXone 1 GM/50 ML BAG IVPB (15:08)
[2021-09-20] MEDS: VANCOMYCIN/WATER (PEG) 1.5 GM/300 ML BAG IVPB (15:50)
--- NOTE | 2021-09-20 16:41 | NUR.NOTE ---
Nursing Note: Patient arrived to Med Surg room 225. Patient states he was doing a yard sale, still had money on him. Patient states that he and the security counted it in the ED and they put it in a safe for him.
[2021-09-20] MEDS: Heparin 5,000 UNITS/ML VIAL 5000 UNITS SC (17:21)
[2021-09-20] MEDS: Lactated Ringers 1,000 ML 75 ML IV (17:21)
--- NOTE | 2021-09-20 17:37 | W.PM.HP.N ---
Date of service: 09/20/21 Time of Service: 17:38 Assessment and Plan Assessment and plan (1) Sepsis: Status: Acute Assessment and plan: Due to cellulitis L elbow/actually suspected septic bursitis of the olecranon bursa. Treat with empiric vancomycin/cefazolin. Trend CRP. Monitor WBC. Procalcitonin is still pending. Orthopedic consult. NPO after midnight for a possible surgical intervention. (2) Cellulitis of arm, left: Status: Acute Assessment and plan: As above. Concern for septic bursitis. (3) Dehydration: Status: Acute Assessment and plan: Gentle IVF. (4) Ischemic cardiomyopathy: Status: Acute Assessment and plan: No recent echos in the system. Obtain echo. This appears to have been in setting of the AK/CABG and, per Dr Tabares's note, his LVEF had improved several months later to the 50%. (5) DVT prophylaxis: Status: Acute Assessment and plan: Heparin on hold in anticipation of OR tomorrow (6) Discharge planning issues: Status: Acute Assessment and plan: Full code as confirmed in my conversation with the patient. History of Present Illness History of Present Illness Chief Complaint: L elbow redness and pain; fever Narrative: Mr Anton is a 76 year old male with PMHx of CAD s/p CABG x 4, ICMO/CHFrEF, HTN, hyperlipidemia, BPH, depression with anxiety, who presented to [facility] ED today with redness to L arm/elbow after scraping the skin on it 4 days ago. He noticed more redness and swelling in it yesterday. Today, he could not bend it. In the ED, he was febrile to 38.4 with rigors. He also reported a headache. He was tachycardic and had a leucocytosis of 14.56. His CRP was 7.66. XR of the elbow showed marked soft tissue swelling but no fractures or osteomyelitis. Dr Valle of orthopedics was consulted by ED and recommended a medical admission with broad spectrum antibiotics. Hospitalist admission was requested. Review of Systems All systems reviewed & are unremarkable except as noted in HPI and below PFSH All Active Problems (Updated 09/20/21 @ 18:15 by Rosmery Weaver MD) Discharge planning issues (Acute) DVT prophylaxis (Acute) Ischemic cardiomyopathy (Acute) Dehydration (Acute) Sepsis (Acute) Cellulitis of arm, left (Acute) Closed fracture of fifth metacarpal bone of left hand (Acute 08/27/21) Rupture of right proximal biceps tendon (Acute 03/07/20) Depression with anxiety (Acute) Hypertension (Chronic) Hx of non-ST elevation myocardial infarction (NSTEMI) (Acute) BPH (benign prostatic hyperplasia) (Chronic) Status post coronary artery bypass graft (Acute) Cardiomyopathy (Acute) Hyperlipidemia (Acute) Surgical History (Updated 09/20/21 @ 18:41 by Rosmery Weaver MD) S/P CABG x 4 Family History (Updated 09/20/21 @ 18:42 by Rosmery Weaver MD) Daughter Cancer hematologic malignancy - the patient is not sure what type Social History Smoking/Tobacco Use Status: Never Smoking risk assessment performed?: Yes Alcohol Intake: current Alcohol Intake frequency: a few times a month Alcohol type: beer Drug use: Socially Substance use type: marijuana Current gender identity: male Do you feel safe at home: Yes Do you feel safe in your relationship?: Yes Meds Allergies and Home Medications Allergies Allergy/AdvReac Type Severity Reaction Status Date / Time bupropion [From Wellbutrin] Allergy Unverified 09/20/21 12:12 Home Medications Medication Instructions Recorded Confirmed Type aspirin 81 mg tablet,delayed 81 mg PO DAILY 03/18/20 09/20/21 History release (Adult Low Dose Aspirin) atorvastatin 40 mg tablet 40 mg PO DAILY 03/18/20 09/20/21 History lisinopril 5 mg tablet 5 mg PO DAILY 03/18/20 09/20/21 History metoprolol succinate 25 mg 25 mg PO BID 03/18/20 09/20/21 History tablet,extended release 24 hr tamsulosin 0.4 mg capsule 0.4 mg PO DAILY 03/18/20 09/20/21 History venlafaxine 150 mg 150 mg PO DAILY 03/18/20 09/20/21 History capsule,extended release 24 hr (Effexor XR) Exam Narrative Exam Narrative: General: Pleasant elderly male who looks younger than his stated age, A&Ox3, guarding his left elbow Neurological: A&Ox3, no focal deficits Psychiatric: Very mildly/appropriately anxious, appropriate speech pattern/content Skin: L elbow with erythema over the olecranon bursa where there is a desquamated area with seemingly purulent material; patient unable to bend elbow due to pain HEENT: Atraumatic, normocephalic, EOMI, MMM, clear oropharynx, no submandibular or cervical lymphadenopathy, no goiter or JVD Cardiovascular: RRR, tachycardic, no m/r/g Lungs: CTAB Gastrointestinal: soft, nontender, nondistended Genitourinary: deferred Extremities: no edema BLEs, see skin exam above Results Imaging Additional studies: XR LUE: Marked soft tissue swelling.? No fractures.? No radiopaque foreign body.? No radiographic evidence of osteomyelitis. Labs Result diagrams: 09/20/21 12:45 09/20/21 12:45 Labs: Laboratory Results - last 24 hr 09/20/21 09/20/21 09/20/21 12:45 12:45 12:45 WBC RBC Hgb Hct MCV MCH MCHC RDW Plt Count MPV Immature Gran % Neutrophils % Lymphocytes % Monocytes % Eosinophils % Basophils % Nucleated RBC % Absolute Neutrophils Absolute Lymphocytes Absolute Monocytes Absolute Eosinophils Absolute Basophils ESR 17 VBG Lactate 1.4 Sodium 136 Potassium 4.5 Chloride 102 Carbon Dioxide 25.0 Anion Gap 9.0 BUN 23 H Creatinine 1.0 Estimated GFR/1.73 m2 >= 60.00 Glucose 96 Calcium 8.7 Total Bilirubin 0.8 AST 24 ALT 37 Alkaline Phosphatase 80 C-Reactive Protein 7.66 H Total Protein 7.5 Albumin 3.8 COVID-19 Source SARS-CoV-2 (PCR) Add-On Test Request 09/20/21 09/20/21 09/20/21 12:45 12:50 14:48 WBC 14.56 H RBC 5.18 Hgb 13.9 Hct 43.0 MCV 83 MCH 26.8 L MCHC 32.3 RDW 14.7 H Plt Count 234 MPV 9.9 Immature Gran % 0.5 Neutrophils % 85.2 Lymphocytes % 5.7 Monocytes % 7.3 Eosinophils % 1.0 Basophils % 0.3 Nucleated RBC % 0.0 Absolute Neutrophils 12.41 H Absolute Lymphocytes 0.83 L Absolute Monocytes 1.06 H Absolute Eosinophils 0.15 Absolute Basophils 0.04 ESR VBG Lactate Sodium Potassium Chloride Carbon Dioxide Anion Gap BUN Creatinine Estimated GFR/1.73 m2 Glucose Calcium Total Bilirubin AST ALT Alkaline Phosphatase C-Reactive Protein Total Protein Albumin COVID-19 Source Nasal/Nares SARS-CoV-2 (PCR) Negative Add-On Test Request TNP Last Vital Signs Temp 37.9 C H 09/20/21 16:43 Pulse 108 H 09/20/21 16:43 Resp 16 09/20/21 16:43 BP 123/70 09/20/21 16:43 Pulse Ox 96 09/20/21 16:43 PAWSS Have you Been Recently Intoxicated or Drunk Within the Last 30 days?: No Have you Ever Experienced Previous Episodes of Alcohol Withdrawal?: No Have you ever Experienced Withdrawal Seizures?: No Have you ever Experienced Delirium Tremens(DT)s?: No Have you ever undergone Alcohol Rehabilitation Treatment (i.e, inpt ot outpatient treatment programs)?: No Have you ever Experienced Blackouts?: No Have you ever Combined Alcohol with other Downers within the last 90 days?: No Have you ever Combined Alcohol with any other Substance of Abuse during the last 90 days?: No Positive Blood Alcohol level on Presentation? [PCS.BAL]: No Evidence of Increased Autonomic Activity (i.e. HR>120, tremor, sweating, agitation, nausea)?: No Result: 0
[2021-09-20 18:04] LABS: Bilirubin Negative (Negative); Blood Moderate (Negative); Clarity Clear (Clear); Glucose Negative (Negative); Ketones Trace mg/dL (Negative); Leukocyte Esterase Negative (Negative); Nitrite Negative (Negative); Specific Gravity 1.015 (1.005-1.025); Urobilinogen 0.2 EU/dL (Up TO 0.2); pH 5.5 (5-8)
[2021-09-20 18:13] LABS: Bacteria Negative HPF (Negative); C & S Indicated? No; Crystals Negative HPF (Negative); Epithelial Cells Negative HPF (Negative); Mucus Moderate (Negative); WBC 0-2 HPF (0-5)
[2021-09-20] MEDS: Normal Saline Flush 10 ML SYR IVP (18:15)
[2021-09-20] MEDS: Ketorolac 15 MG/ML VIAL IVP (18:15)
[2021-09-20] MEDS: Metoprolol CR 25 MG TABCR PO (20:50)
[2021-09-20] MEDS: Acetaminophen 325 MG TAB PO (20:51)
[2021-09-20] MEDS: ceFAZolin 2 GM/50 ML BAG IVPB (22:42)
[2021-09-21] VITALS (11 sets, daily range): BP systolic 93–127; BP diastolic 50–68; PULSE 76–88; RESP 16–20; TEMP 36.8–38.3; O2SAT 95–99
[2021-09-21] MEDS: ceFAZolin 2 GM/50 ML BAG IVPB ×3 (05:27→22:55)
[2021-09-21 05:49] LABS: Abs Immature Grans 0.44 10^3/uL (0.0-0.06); Absolute Basophil Count 0.08 10^3/uL (0.0-0.2); Absolute Eosinophil Count 0.04 10^3/uL (0.0-0.7); Absolute Lymphocyte Count 0.83 10^3/uL (1.2-3.4); Absolute Monocyte Count 1.31 10^3/uL (0.1-0.8); Basophils % 0.4; Eosinophils % 0.2; HCT 36.8 % (40.0-50.0); HGB 12.1 g/dL (13.5-17.5); Immature Grans % 2.3; Lymphocytes % 4.3; MCH 27.1 pg (27.0-33.0); MCHC 32.9 % (32.0-36.0); MCV 82 fL (80-95); MPV 10.2 fL (8.0-11.0); Monocytes % 6.8; Platelet Count 176 10^3/uL (130-400); RBC 4.47 10^6/uL (4.36-5.78); RDW 14.7 % (11.8-14.1); RDW-SD 44.3 fL; WBC 19.23 10^3/uL (4.4-10.8)
[2021-09-21 05:54] LABS: Absolute Neutrophil Count 16.54 10^3/uL (1.2-6.7)
[2021-09-21 06:03] LABS: Anion Gap 12.2 mmol/L (3-11); BUN 23 mg/dL (7-18); C-Reactive Protein 23.07 mg/dL (0.0-0.3); CO2 20.8 mmol/L (21.0-32.0); CREATININE 1.1 mg/dL (0.70-1.30); Calcium 8.4 mg/dL (8.5-10.1); Chloride 104 mmol/L (98-107); Glucose 92 mg/dL (74-106); Magnesium 1.8 mg/dL (1.8-2.4); Potassium 3.9 mmol/L (3.5-5.1); Sodium 137 mmol/L (136-145)
[2021-09-21 06:43] LABS: Procalcitonin 7.9 ng/mL
[2021-09-21] MEDS: Acetaminophen 325 MG TAB PO ×3 (07:32→20:06)
[2021-09-21] MEDS: Aspirin E.C. 81 MG TABEC PO (08:57)
[2021-09-21] MEDS: Atorvastatin 40 MG TAB PO (08:57)
[2021-09-21] MEDS: Venlafaxine 150 MG CAPCR PO (08:57)
[2021-09-21] MEDS: Normal Saline Flush 10 ML SYR IVP ×3 (09:03→14:05)
[2021-09-21] MEDS: Normal Saline 500 ML 30 ML IV (10:12)
[2021-09-21] MEDS: VANCOMYCIN 1,250 MG in Normal Saline 250 ML 166.667 MG IVPB (10:12)
--- NOTE | 2021-09-21 10:51 | PDOC.CMIN ---
- If Service Date Differs Date of service: 09/21/21 Time of Service: 10:51 Care Management Initial Assess REASON FOR HOSPITALIZATION:: sepsis, cellulitis L elbow PAST MEDICAL HISTORY/PAST SURGICAL HISTORY:: All Active Problems. Discharge planning issues (Acute). DVT prophylaxis (Acute). Ischemic cardiomyopathy (Acute). Dehydration (Acute). Sepsis (Acute). Cellulitis of arm, left (Acute). Closed fracture of fifth metacarpal bone of left hand (Acute 08/27/21). Rupture of right proximal biceps tendon (Acute 03/07/20). Depression with anxiety (Acute). Hypertension (Chronic). Hx of non-ST elevation myocardial infarction (NSTEMI) (Acute). BPH (benign prostatic hyperplasia) (Chronic). Status post coronary artery bypass graft (Acute). Cardiomyopathy (Acute). Hyperlipidemia (Acute). Surgical History. S/P CABG x 4 PREVIOUS FUNCTIONAL STATUS/SOCIAL/FAMILY SUPPORTS:: Bora lives in [place], alone, with his two dogs. He has one adult child, who does not live in the area. He has friends/neighbors who are supportive. He is a retired retail warehouse associate, and states that he is very independent. He drives and performs all ADL's independently. CURRENT FUNCTIONAL STATUS:: Bora was sitting up in bed when CM met with him. He reported that he is feeling much better and is having considerably less pain in his elbow. He stated that he spoke to Ortho, who stated that he would likely return home with oral antibiotics. He is currently receiving IV antibiotics, and had an echo today due to his cardiac history. He stated that he does not anticipate the need for any services at home, and plans to drive himself home when ready. CM will continue to follow. ADVANCE DIRECTIVES:: None on file. Has patient been provided with info about the portal/API?: Yes CODE STATUS:: Full Code INSURANCE COVERAGE / FINANCIAL ISSUES:: [employer] (MCR replacement); [facility] CURRENT HOME/COMMUNITY SERVICES/EQUIPMENT:: No current services or equipment. PRIMARY CARE PHYSICIAN:: Jacky Gil POTENTIAL DISCHARGE NEEDS:: Evaluations for further needs, follow up appointments. PATIENT/FAMILY EDUCATION NEEDS:: Review discharge instructions and limitations, discussion of self care needs including ask me three. ANTICIPATED BARRIERS TO DISCHARGE:: None identified. TRANSPORTATION:: Via private vehicle. PLAN:: Anticipate Bora will return home when medically cleared. He will be driven home via private vehicle when ready. He will follow up with his PCP and discharge plan of care. CM will continue to follow.
--- NOTE | 2021-09-21 12:54 | W.ORTHOCONSU ---
Date of service: 09/21/21 Time of Service: 12:10 History of Present Illness History of Present Illness Chief Complaint: Left Elbow Swelling/Pain Narrative: Mr. Anton is a 76-year-old [id number] male who presents with left arm and elbow swelling and pain. Approximately 5 or so days ago he landed onto the left elbow with a scrape to the skin of the area. Over the ensuing next few days he developed pain with swelling and redness. He had difficulty with moving the left arm and was noted to have fever. He does have significant past medical history for CHF and previous CABG along. He was tachycardic and had a leukocytosis of his admitted to the hospital for IV antibiotic administration. Since this morning he has noted significant improvements. He was quite worried yesterday with lack of motion but feels that things are turning the corner. He is now able to move the left elbow. He denies any drainage out of the left elbow abrasion site. He denies fevers or chills. He is overall feeling better with much less fatigue and malaise. Consults Consult date: 09/21/21 Requesting physician: Rosmery Weaver Consult Reason Left elbow septic bursitis Assessment and Plan Assessment and plan (1) Septic olecranon bursitis of left elbow: Status: Acute Assessment and plan: Igor is a 76-year-old who developed a septic bursitis about the left elbow. This does seem to be improving significantly. His labs are worse today which is to be expected as they will lag behind 48 hours or so. Clinically, he is able to move the elbow and he does not have any erythema no drainage from this abrasion site. While he does have some cardiac history he does not have any other immune compromising factors and therefore I do think discharge on oral antibiotic would be reasonable with close follow-up. A fluoroquinolone will cover most organisms responsible for septic bursitis. I advised him to only use the elbow as needed. He should avoid any direct pressure to the olecranon. I would like to see him back in 1 week for repeat clinical evaluation completing 1 week of oral antibiotics. If he has any worsening symptoms he can call me at the office to discuss neck steps which may include operative debridement. Review of Systems All systems reviewed & are unremarkable except as noted in HPI and below PFSH All Active Problems (Updated 09/21/21 @ 13:03 by Ezra Valentin MD) Septic olecranon bursitis of left elbow (Acute) Discharge planning issues (Acute) DVT prophylaxis (Acute) Ischemic cardiomyopathy (Acute) Dehydration (Acute) Sepsis (Acute) Cellulitis of arm, left (Acute) Closed fracture of fifth metacarpal bone of left hand (Acute 08/27/21) Rupture of right proximal biceps tendon (Acute 03/07/20) Depression with anxiety (Acute) Hypertension (Chronic) Hx of non-ST elevation myocardial infarction (NSTEMI) (Acute) BPH (benign prostatic hyperplasia) (Chronic) Status post coronary artery bypass graft (Acute) Cardiomyopathy (Acute) Hyperlipidemia (Acute) Surgical History S/P CABG x 4 Family History Daughter Cancer hematologic malignancy - the patient is not sure what type Social History Smoking/Tobacco Use Status: Never Smoking risk assessment performed?: Yes Alcohol Intake: current Alcohol Intake frequency: a few times a month Alcohol type: beer Drug use: Socially Substance use type: marijuana Current gender identity: male Do you feel safe at home: Yes Do you feel safe in your relationship?: Yes Exam Narrative Exam Narrative: Resting comfortably in the hospital bed. No acute distress. Alert and orient x3. Evaluation of the left arm shows some moderate swelling about the left proximal forearm and the left elbow. There is an area marked with a black marker on the posterior aspect of the left elbow without significant erythema within or outside of it. He is able to demonstrate active flexion to 140 degrees and extension to 10 degrees. There is an area of an abrasion approxi-1 cm in diameter which has no expressible fluid and no drainage. No areas of fluctuance. No significant fluid seen over the olecranon itself. However range of motion does not increase pain and does not show any expressible fluid. Sensation intact to light touch over the median, radial, ulnar nerve. Palpable radial pulse. Results Last Vital Signs Temp 37.1 C 09/21/21 12:21 Pulse 78 09/21/21 12:21 Resp 18 09/21/21 12:21 BP 117/60 09/21/21 12:21 Pulse Ox 97 09/21/21 12:21 Labs Result diagrams: 09/21/21 05:22 09/21/21 05:22 Labs: Laboratory Results - last 24 hr 09/20/21 09/20/21 09/20/21 12:45 12:45 12:45 WBC RBC Hgb Hct MCV MCH MCHC RDW Plt Count MPV Immature Gran % Neutrophils % Lymphocytes % Monocytes % Eosinophils % Basophils % Nucleated RBC % Absolute Neutrophils Absolute Lymphocytes Absolute Monocytes Absolute Eosinophils Absolute Basophils ESR 17 VBG Lactate 1.4 Sodium 136 Potassium 4.5 Chloride 102 Carbon Dioxide 25.0 Anion Gap 9.0 BUN 23 H Creatinine 1.0 Estimated GFR/1.73 m2 >= 60.00 Glucose 96 Calcium 8.7 Magnesium Total Bilirubin 0.8 AST 24 ALT 37 Alkaline Phosphatase 80 C-Reactive Protein 7.66 H Total Protein 7.5 Albumin 3.8 Procalcitonin Urine Color Urine Clarity Urine pH Ur Specific [place] Urine Protein Urine Ketones Urine Blood Urine Nitrite Urine Bilirubin Urine Urobilinogen Ur Leukocyte Esterase Urine RBC Urine WBC Ur Epithelial Cells Urine Crystals Urine Bacteria Urine Mucus Ur Culture Indicated? Urine Glucose SARS-CoV-2 (PCR) Add-On Test Request 09/20/21 09/20/21 09/20/21 12:45 12:50 14:48 WBC 14.56 H RBC 5.18 Hgb 13.9 Hct 43.0 MCV 83 MCH 26.8 L MCHC 32.3 RDW 14.7 H Plt Count 234 MPV 9.9 Immature Gran % 0.5 Neutrophils % 85.2 Lymphocytes % 5.7 Monocytes % 7.3 Eosinophils % 1.0 Basophils % 0.3 Nucleated RBC % 0.0 Absolute Neutrophils 12.41 H Absolute Lymphocytes 0.83 L Absolute Monocytes 1.06 H Absolute Eosinophils 0.15 Absolute Basophils 0.04 ESR VBG Lactate Sodium Potassium Chloride Carbon Dioxide Anion Gap BUN Creatinine Estimated GFR/1.73 m2 Glucose Calcium Magnesium Total Bilirubin AST ALT Alkaline Phosphatase C-Reactive Protein Total Protein Albumin Procalcitonin Urine Color Urine Clarity Urine pH Ur Specific [place] Urine Protein Urine Ketones Urine Blood Urine Nitrite Urine Bilirubin Urine Urobilinogen Ur Leukocyte Esterase Urine RBC Urine WBC Ur Epithelial Cells Urine Crystals Urine Bacteria Urine Mucus Ur Culture Indicated? Urine Glucose SARS-CoV-2 (PCR) Negative Add-On Test Request TNP 09/20/21 09/21/21 09/21/21 18:00 05:22 05:22 WBC RBC Hgb Hct MCV MCH MCHC RDW Plt Count MPV Immature Gran % Neutrophils % Lymphocytes % Monocytes % Eosinophils % Basophils % Nucleated RBC % Absolute Neutrophils Absolute Lymphocytes Absolute Monocytes Absolute Eosinophils Absolute Basophils ESR VBG Lactate Sodium 137 Potassium 3.9 Chloride 104 Carbon Dioxide 20.8 L Anion Gap 12.2 H BUN 23 H Creatinine 1.1 Estimated GFR/1.73 m2 >= 60.00 Glucose 92 Calcium 8.4 L Magnesium 1.8 Total Bilirubin AST ALT Alkaline Phosphatase C-Reactive Protein 23.07 H Total Protein Albumin Procalcitonin 7.9 Urine Color Yellow Urine Clarity Clear Urine pH 5.5 Ur Specific [place] 1.015 Urine Protein Negative Urine Ketones Trace H Urine Blood Moderate H Urine Nitrite Negative Urine Bilirubin Negative Urine Urobilinogen 0.2 Ur Leukocyte Esterase Negative Urine RBC 10-20 H Urine WBC 0-2 Ur Epithelial Cells Negative Urine Crystals Negative Urine Bacteria Negative Urine Mucus Moderate Ur Culture Indicated? No Urine Glucose Negative SARS-CoV-2 (PCR) Add-On Test Request 09/21/21 05:22 WBC 19.23 H RBC 4.47 Hgb 12.1 L Hct 36.8 L MCV 82 MCH 27.1 MCHC 32.9 RDW 14.7 H Plt Count 176 MPV 10.2 Immature Gran % 2.3 Neutrophils % 86.0 Lymphocytes % 4.3 Monocytes % 6.8 Eosinophils % 0.2 Basophils % 0.4 Nucleated RBC % 0.0 Absolute Neutrophils 16.54 H Absolute Lymphocytes 0.83 L Absolute Monocytes 1.31 H Absolute Eosinophils 0.04 Absolute Basophils 0.08 ESR VBG Lactate Sodium Potassium Chloride Carbon Dioxide Anion Gap BUN Creatinine Estimated GFR/1.73 m2 Glucose Calcium Magnesium Total Bilirubin AST ALT Alkaline Phosphatase C-Reactive Protein Total Protein Albumin Procalcitonin Urine Color Urine Clarity Urine pH Ur Specific [place] Urine Protein Urine Ketones Urine Blood Urine Nitrite Urine Bilirubin Urine Urobilinogen Ur Leukocyte Esterase Urine RBC Urine WBC Ur Epithelial Cells Urine Crystals Urine Bacteria Urine Mucus Ur Culture Indicated? Urine Glucose SARS-CoV-2 (PCR) Add-On Test Request
[2021-09-21] MEDS: Metoprolol CR 25 MG TABCR PO (20:06)
--- NOTE | 2021-09-21 21:19 | W.PM.PROGNOT ---
Date of Service Date of service: 09/21/21 Time of Service: 17:45 Assessment and Plan Assessment and plan (1) Sepsis: Status: Acute Assessment and plan: Due to septic olecranon bursitis of the L elbow. Continue empiric vancomycin/cefazolin. Trend WBC, CRP Blood cx with NGTD. No surgery needed, per orthopedics. Discussed with Dr Valentin. (2) Septic olecranon bursitis of left elbow: Status: Acute Assessment and plan: Even though WBC and CRP are worse, clinically, he has improved. Continue current abx as above. (3) Dehydration: Status: Resolved Assessment and plan: IVF d/c'ed. (4) Ischemic cardiomyopathy: Status: Chronic Assessment and plan: Echo today: LVEF 57%, normal wall motion. RV normal in size and function. Moderate mitral regurgication, moderate tricuspid regurgitation. Moderate dilatation of the aorta with normal sized aortic root. Euvolemic. Stable. No further workup at this time. (5) DVT prophylaxis: Status: Acute Assessment and plan: Resume heparin sc (6) Discharge planning issues: Status: Acute Assessment and plan: Full code as confirmed in my conversation with the patient. Subjective Subjective Interval history since last seen: Mr Anton feels better today. He is able to bend his left elbow. Denies dizziness, chest pain, shortness of breath, nausea. Exam Narrative Exam Narrative: General: Pleasant elderly male who looks younger than his stated age, A&Ox3, looks better, moving his LUE and able to bend the elbow HEENT: EOMI, MMM Cardiovascular: RRR, ?question of queit CASSY Lungs: CTAB Gastrointestinal: soft, nontender, nondistended Extremities: no edema BLEs, erythema over L elbow decreased; able to bend L elbow Objective Last Vital Signs Temp 38.3 C H 09/21/21 19:29 Pulse 76 09/21/21 19:29 Resp 20 09/21/21 19:29 BP 117/67 09/21/21 19:29 Pulse Ox 97 09/21/21 19:29 Laboratory Results - last 24 hr 09/21/21 09/21/21 09/21/21 05:22 05:22 05:22 WBC 19.23 H RBC 4.47 Hgb 12.1 L Hct 36.8 L MCV 82 MCH 27.1 MCHC 32.9 RDW 14.7 H Plt Count 176 MPV 10.2 Immature Gran % 2.3 Neutrophils % 86.0 Lymphocytes % 4.3 Monocytes % 6.8 Eosinophils % 0.2 Basophils % 0.4 Nucleated RBC % 0.0 Absolute Neutrophils 16.54 H Absolute Lymphocytes 0.83 L Absolute Monocytes 1.31 H Absolute Eosinophils 0.04 Absolute Basophils 0.08 Sodium 137 Potassium 3.9 Chloride 104 Carbon Dioxide 20.8 L Anion Gap 12.2 H BUN 23 H Creatinine 1.1 Estimated GFR/1.73 m2 >= 60.00 Glucose 92 Calcium 8.4 L Magnesium 1.8 C-Reactive Protein 23.07 H Procalcitonin 7.9 PAWSS Have you Been Recently Intoxicated or Drunk Within the Last 30 days?: No Have you Ever Experienced Previous Episodes of Alcohol Withdrawal?: No Have you ever Experienced Withdrawal Seizures?: No Have you ever Experienced Delirium Tremens(DT)s?: No Have you ever undergone Alcohol Rehabilitation Treatment (i.e, inpt ot outpatient treatment programs)?: No Have you ever Experienced Blackouts?: No Have you ever Combined Alcohol with other Downers within the last 90 days?: No Have you ever Combined Alcohol with any other Substance of Abuse during the last 90 days?: No Positive Blood Alcohol level on Presentation? [PCS.BAL]: No Evidence of Increased Autonomic Activity (i.e. HR>120, tremor, sweating, agitation, nausea)?: No Result: 0
[2021-09-21] MEDS: Heparin 5,000 UNITS/ML VIAL 5000 UNITS SC (22:55)
[2021-09-22] VITALS (11 sets, daily range): BP systolic 113–137; BP diastolic 67–77; PULSE 77–85; RESP 18–21; TEMP 36.4–38.5; O2SAT 96–98
[2021-09-22] MEDS: VANCOMYCIN 1,250 MG in Normal Saline 250 ML 167 MG IVPB ×2 (02:35→17:36)
[2021-09-22] MEDS: ceFAZolin 2 GM/50 ML BAG IVPB ×3 (05:51→23:07)
[2021-09-22 06:35] LABS: Abs Immature Grans 0.94 10^3/uL (0.0-0.06); HCT 37.1 % (40.0-50.0); HGB 12.2 g/dL (13.5-17.5); MCH 26.9 pg (27.0-33.0); MCHC 32.9 % (32.0-36.0); MCV 82 fL (80-95); MPV 10.5 fL (8.0-11.0); Platelet Count 195 10^3/uL (130-400); RBC 4.54 10^6/uL (4.36-5.78); RDW 15.5 % (11.8-14.1); RDW-SD 46.3 fL; WBC 21.47 10^3/uL (4.4-10.8)
[2021-09-22 06:51] LABS: Anion Gap 8.5 mmol/L (3-11); BUN 22 mg/dL (7-18); CO2 23.5 mmol/L (21.0-32.0); CREATININE 0.9 mg/dL (0.70-1.30); Calcium 8.7 mg/dL (8.5-10.1); Chloride 105 mmol/L (98-107); Glucose 104 mg/dL (74-106); Potassium 3.7 mmol/L (3.5-5.1); Sodium 137 mmol/L (136-145)
[2021-09-22 06:56] LABS: Bands % 14
[2021-09-22 06:57] LABS: Absolute Monocyte Count 1.29 10^3/uL (0.1-0.8); Diff Comment Manual Differential; RBC Morphology Normal
[2021-09-22 07:08] LABS: C-Reactive Protein > 25.00 mg/dL (0.0-0.3)
[2021-09-22] MEDS: Heparin 5,000 UNITS/ML VIAL 5000 UNITS SC ×2 (07:35→16:15)
[2021-09-22] MEDS: Aspirin E.C. 81 MG TABEC PO (09:32)
[2021-09-22] MEDS: Atorvastatin 40 MG TAB PO (09:33)
[2021-09-22] MEDS: Tamsulosin 0.4 MG CAPCR PO (09:33)
[2021-09-22] MEDS: Venlafaxine 150 MG CAPCR PO (09:33)
[2021-09-22] MEDS: Metoprolol CR 25 MG TABCR PO ×2 (09:33→20:09)
[2021-09-22] MEDS: Lisinopril 5 MG TAB PO (09:33)
[2021-09-22] MEDS: Normal Saline Flush 10 ML SYR IVP ×2 (09:34→13:32)
[2021-09-22 11:18] LABS: Atypical Lymphocytes % 0
[2021-09-22 11:21] LABS: Absolute Lymphocyte Count 0.43 10^3/uL (1.2-3.4); Absolute Neutrophil Count 19.75 10^3/uL (1.2-6.7)
--- NOTE | 2021-09-22 11:45 | W.PM.PROGNOT ---
Date of Service Date of service: 09/22/21 Time of Service: 11:45 Assessment and Plan Assessment and plan (1) Septic olecranon bursitis of left elbow: Status: Acute Assessment and plan: I have asked Dr. Valentin to re-visit the patient and consider washout of the bursa. I will continue Ancef and Vancomycin but if his MRSA screen is negative then the vancomcyin should be stopped. (2) Cellulitis of arm, left: Status: Acute Assessment and plan: as above Subjective Subjective Interval history since last seen: Patient still has pain in his left elbow along w/ swelling about the elbow although he has improved ROM. He is currently on Rocephin and Vancomycin. I will check his MRSA screen and if neg. then dc his Vancomycin. I have contacted Dr. Valentin and asked him to take a second look at this gentleman's elbow. Exam Narrative Exam Narrative: Left elbow has abrasion over the olecranon process. The area of redness had been demarcated w/ skin marker and the area of redness has decreased but there is induration and tenderness over the bursa and over the medial and lateral sides of the joint Objective Last Vital Signs Temp 36.1 C L 09/24/21 07:28 Pulse 77 09/24/21 07:28 Resp 16 09/24/21 07:28 BP 145/79 H 09/24/21 07:28 Pulse Ox 98 09/24/21 07:28 PAWSS Have you Been Recently Intoxicated or Drunk Within the Last 30 days?: No Have you Ever Experienced Previous Episodes of Alcohol Withdrawal?: No Have you ever Experienced Withdrawal Seizures?: No Have you ever Experienced Delirium Tremens(DT)s?: No Have you ever undergone Alcohol Rehabilitation Treatment (i.e, inpt ot outpatient treatment programs)?: No Have you ever Experienced Blackouts?: No Have you ever Combined Alcohol with other Downers within the last 90 days?: No Have you ever Combined Alcohol with any other Substance of Abuse during the last 90 days?: No Positive Blood Alcohol level on Presentation? [PCS.BAL]: No Evidence of Increased Autonomic Activity (i.e. HR>120, tremor, sweating, agitation, nausea)?: No Result: 0
[2021-09-22] MEDS: Normal Saline 500 ML 30 ML IV (13:32)
[2021-09-22] MEDS: Acetaminophen 325 MG TAB PO (16:54)
--- NOTE | 2021-09-22 18:10 | CMPROGNOTE_ITS ---
- If Service Date Differs Date of service: 09/22/21 Time of Service: 18:10 Care Management Progress Note S/O: Igor was lying in bed when CM met with him. He reported that he is feeling much better, and he is able to move his elbow better today than yesterday. Per report, Igor had a fever overnight, therefore MD will keep him overnight for further monitoring. He is agreeable to this plan, and is looking forward to returning home. CM will continue to follow. A: Bora is a 76 year old male admitted to [facility] on 09/20/21 for sepsis, cellulitis L elbow. P: Anticipate Bora will return home when medically cleared. He will be driven home via private vehicle when ready. He will follow up with his PCP and discharge plan of care. CM will continue to follow.
[2021-09-22] MEDS: Lactated Ringers 1,000 ML 100 ML IV (23:07)
[2021-09-23] VITALS (15 sets, daily range): BP systolic 82–137; BP diastolic 47–78; PULSE 69–86; RESP 15–24; TEMP 36.6–38.2; O2SAT 94–99; BMI 26.5
[2021-09-23] MEDS: ceFAZolin 2 GM/50 ML BAG IVPB (05:50)
--- NOTE | 2021-09-23 05:55 | W.PM.PROGNOT ---
Date of Service Date of service: 09/23/21 Time of Service: 07:40 Assessment and Plan Assessment and plan (1) Septic olecranon bursitis of left elbow: Status: Acute Assessment and plan: Bora is a 76-year-old who suffered an abrasion to the posterior aspect of the left elbow which is secondarily become a septic bursitis. Initially when I saw him on Tuesday it seemed to be improving significantly and therefore my suspicion is that antibiotics is all that would be needed. Unfortunately, he has continued to have fevers and continued to have symptoms about the left elbow with increasing inflammatory markers and a sustained leukocytosis. There is no expressible fluid that I can detect but I am concerned there could be foreign body or loculated abscess which is causing persistent inflammatory markers and fevers. Given the failure of IV antibiotics I would recommend proceeding with irrigation and debridement of the last olecranon bursa. Once again, I do not suspect this is involving the joint whatsoever. At the time of the procedure we could consider aspiration of the left elbow although my clinical suspicion is quite low. I reviewed the risk of the procedure with him to include bleeding, infection, pain, stiffness, continued infection, wound healing difficulties, need for repeat procedures. Despite these risk, he elects to proceed. Subjective Subjective Interval history since last seen: Bora unfortunately has worsened since I saw him on Tuesday. While Tuesday was much better than his initial presentation in regards to erythema and stiffness of the elbow, he continues to have fevers and increasing inflammatory labs. He feels like something may be in the left elbow. Initial injury was when he bumped the elbow against some furniture and he does not recall there being any loose pieces of wood or concerned about that. Nevertheless, he continues to have pain swelling and stiffness about the left elbow with an increasing white blood cell count and increasing C-reactive protein. He does find that the elbow is more painful today than it was on Tuesday. Blood cultures have been negative. Exam Narrative Exam Narrative: No acute distress. Alert and orient x3. Evaluation of left upper extremity does show diffuse edema from the distal portion of the left arm through the distal aspect of the left forearm focus mostly over the posterior aspect. There is an abrasion seen over the point of the olecranon which has a wet eschar. There is no clear fluctuance. There is no drainable collection unable to express. However, there is distinct pain to palpation of this area and onto the proximal aspect of the ulna. He is able to actively move the elbow from about 60 degrees of flexion and 120 degrees of extension. Passively I can also move him slightly more than this and mainly causes pain of the posterior aspect the elbow. Given the swelling in the arm is difficult appreciate a true effusion of the left elbow although I do not have any crepitus through range of motion or palpation. No notable pain about the wrist with range of motion nor about the shoulder. Objective Last Vital Signs Temp 36.6 C 09/23/21 03:37 Pulse 85 09/23/21 03:37 Resp 20 09/23/21 03:37 BP 122/72 09/23/21 03:37 Pulse Ox 97 09/23/21 03:37 Laboratory Results - last 24 hr 09/22/21 09/22/21 05:45 05:45 WBC 21.47 H RBC 4.54 Hgb 12.2 L Hct 37.1 L MCV 82 MCH 26.9 L MCHC 32.9 RDW 15.5 H Plt Count 195 MPV 10.5 Immature Gran % See Differential Neutrophils % 78.0 Band Neutrophils % 14 Lymphocytes % 2.0 Atypical Lymphs % 0 Monocytes % 6.0 Eosinophils % 0.0 Basophils % 0.0 Nucleated RBC % 0.0 Absolute Neutrophils 19.75 H Absolute Lymphocytes 0.43 L Absolute Monocytes 1.29 H Absolute Eosinophils 0.00 Absolute Basophils 0.00 RBC Morphology Normal Sodium 137 Potassium 3.7 Chloride 105 Carbon Dioxide 23.5 Anion Gap 8.5 BUN 22 H Creatinine 0.9 Estimated GFR/1.73 m2 >= 60.00 Glucose 104 Calcium 8.7 Magnesium 2.0 C-Reactive Protein > 25.00 H PAWSS Have you Been Recently Intoxicated or Drunk Within the Last 30 days?: No Have you Ever Experienced Previous Episodes of Alcohol Withdrawal?: No Have you ever Experienced Withdrawal Seizures?: No Have you ever Experienced Delirium Tremens(DT)s?: No Have you ever undergone Alcohol Rehabilitation Treatment (i.e, inpt ot outpatient treatment programs)?: No Have you ever Experienced Blackouts?: No Have you ever Combined Alcohol with other Downers within the last 90 days?: No Have you ever Combined Alcohol with any other Substance of Abuse during the last 90 days?: No Positive Blood Alcohol level on Presentation? [PCS.BAL]: No Evidence of Increased Autonomic Activity (i.e. HR>120, tremor, sweating, agitation, nausea)?: No Result: 0
--- NOTE | 2021-09-23 08:49 | W.ANESPRE ---
General Info Date of Service Date Performed: 09/23/21 Height: 5 ft 7 in Weight: 76.9 kg Body Mass Index (BMI): 26.5 Surgical Procedure: Operation Date: 09/23/21 13:25 Proposed Procedure Side Surgeon p I&D of Elbow Left Ezra Valentin MD Meds Allergies and Home Medications Allergies Allergy/AdvReac Type Severity Reaction Status Date / Time bupropion [From Wellbutrin] Allergy Unverified 09/20/21 12:12 Home Medication Medication Instructions Recorded aspirin 81 mg tablet,delayed 81 mg PO DAILY 03/18/20 release (Adult Low Dose Aspirin) atorvastatin 40 mg tablet 40 mg PO DAILY 03/18/20 lisinopril 5 mg tablet 5 mg PO DAILY 03/18/20 metoprolol succinate 25 mg 25 mg PO BID 03/18/20 tablet,extended release 24 hr tamsulosin 0.4 mg capsule 0.4 mg PO DAILY 03/18/20 venlafaxine 150 mg 150 mg PO DAILY 03/18/20 capsule,extended release 24 hr (Effexor XR) Current Visit Medications: Current Medications Generic Name Dose Route Start Last Admin Trade Name Freq PRN Reason Stop Dose Admin Acetaminophen 0 mg 09/20/21 14:47 09/22/21 16:54 Acetaminophen 325 Mg Tab PO 650 mg Q4H PRN PRN Administration Al Hydrox/Mg Hydrox/Simethicone 30 ml 09/20/21 14:47 Mylanta Suspension 30 Ml Cup PO Q2H PRN PRN Aspirin 81 mg 09/21/21 08:30 09/22/21 09:32 Aspirin E.C. 81 Mg Tabec PO 81 mg DAILY MICHAEL Administration Atorvastatin Calcium 40 mg 09/21/21 08:30 09/22/21 09:33 Atorvastatin 40 Mg Tab PO 40 mg DAILY MIHCAEL Administration Dimethicone/Zinc Oxide 0 gm 09/20/21 14:47 Bronwyn Protect Cream 142 Gm Tube TP PRN PRN Docusate Sodium 100 mg 09/20/21 14:47 Docusate Sodium 100 Mg Cap PO TID PRN PRN Heparin Sodium (Porcine) 5,000 units 09/22/21 16:00 09/23/21 07:53 Heparin 5,000 Units/Ml Vial SC Not Given Q8H MICHAEL Sodium Chloride 500 mls @ 0 mls/hr 09/20/21 14:47 09/22/21 20:00 Saline 500ml Bag IV 0 mls/hr PRN PRN Infusion As Directed Vancomycin HCl 1,250 mg/ 250 mls @ 166.667 mls/hr 09/21/21 10:00 09/22/21 19:06 Sodium Chloride IVPB Infused Q16H [facility] Infusion Ringer's Solution 1,000 mls @ 100 mls/hr 09/22/21 23:00 09/22/21 23:07 IV 100 mls/hr INFUSION [facility] Administration Cefazolin Sodium 2,000 mg/ 100 mls @ 200 mls/hr 09/23/21 14:00 Sodium Chloride IV Q8H [facility] IV Miscellaneous Supplies 1 each 09/20/21 15:00 Iv Access IV DIRECTED [facility] Ketorolac Tromethamine 15 mg 09/20/21 17:43 09/20/21 18:15 Ketorolac 15 Mg/Ml Vial IVP 09/25/21 17:42 15 mg Q6H PRN PRN Administration Lisinopril 5 mg 09/21/21 08:30 09/22/21 09:33 Lisinopril 5 Mg Tab PO 5 mg DAILY [facility] Administration Magnesium Hydroxide 30 ml 09/20/21 14:47 Milk Of Magnesia 30 Ml Cup PO DAILY PRN PRN Metoprolol Succinate 25 mg 09/20/21 20:00 09/22/21 20:09 Metoprolol Cr 25 Mg Tabcr PO 25 mg BID [facility] Administration Sodium Chloride 0 ml 09/20/21 14:47 09/22/21 13:32 Normal Saline Flush 10 Ml Syr IVP 10 ml PRN PRN Administration Tamsulosin HCl 0.4 mg 09/21/21 08:30 09/22/21 09:33 Tamsulosin 0.4 Mg Capcr PO 0.4 mg DAILY [facility] Administration Venlafaxine HCl 150 mg 09/21/21 08:30 09/22/21 09:33 Venlafaxine 150 Mg Capcr PO 150 mg DAILY [facility] Administration PFSH Active Problems Active Problems: Problem Status Onset Code Septic olecranon bursitis of left elbow M71.122 Discharge planning issues Z02.9 DVT prophylaxis Z29.9 Ischemic cardiomyopathy I25.5 Dehydration E86.0 Sepsis A41.9 Cellulitis of arm, left L03.114 Closed fracture of fifth metacarpal bone of left hand 08/27/21 S62.307A Rupture of right proximal biceps tendon 03/07/20 S46.211A Depression with anxiety F41.8 Hypertension I10 Hx of non-ST elevation myocardial infarction (NSTEMI) I25.2 BPH (benign prostatic hyperplasia) N40.0 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 Cardiomyopathy I42.9 Hyperlipidemia E78.5 Surgical History Surgical History S/P CABG x 4 Tobacco Smoking/Tobacco Use Status: Never Alcohol Alcohol Intake: current Alcohol intake frequency: a few times a month Alcohol type: beer Substance Use Substance use: Socially Substance use type: marijuana Vital Signs and Lab Results Vital Signs Most Recent Vital Signs in EMR: Most Recent Vital Signs Temp Pulse Resp BP Pulse Ox 37 C 83 20 128/78 97 09/23/21 08:32 09/23/21 08:32 09/23/21 08:32 09/23/21 08:32 09/23/21 03:37 Lab Results Result Diagrams: 09/22/21 05:45 09/22/21 05:45 Blood Type / Crossmatch: No Data to Display Complete Blood Count: White Blood Count 21.47 10^3/uL (4.4-10.8) H 09/22/21 05:45 Red Blood Count 4.54 10^6/uL (4.36-5.78) 09/22/21 05:45 Hemoglobin 12.2 g/dL (13.5-17.5) L 09/22/21 05:45 Hematocrit 37.1 % (40.0-50.0) L 09/22/21 05:45 Platelet Count 195 10^3/uL (130-400) 09/22/21 05:45 Venous Blood Lactate 1.4 mmol/L (0.6-1.4) 09/20/21 12:45 Complete Metabolic Panel: Sodium Level 137 mmol/L (136-145) 09/22/21 05:45 Potassium Level 3.7 mmol/L (3.5-5.1) 09/22/21 05:45 Chloride Level 105 mmol/L (98-107) 09/22/21 05:45 Carbon Dioxide Level 23.5 mmol/L (21.0-32.0) 09/22/21 05:45 Blood Urea Nitrogen 22 mg/dL (7-18) H 09/22/21 05:45 Creatinine 0.9 mg/dL (0.70-1.30) 09/22/21 05:45 Estimated GFR/1.73 m2 >= 60.00 (mL/min/1.73m2) 09/22/21 05:45 Magnesium Level 2.0 mg/dL (1.8-2.4) 09/22/21 05:45 Calcium Level 8.7 mg/dL (8.5-10.1) 09/22/21 05:45 Albumin 3.8 g/dL (3.4-5.0) 09/20/21 12:45 Glucose Level 104 mg/dL (74-106) 09/22/21 05:45 C-Reactive Protein > 25.00 mg/dL (0.0-0.3) H 09/22/21 05:45 Liver Function Panel: Alanine Aminotransferase (ALT/SGPT) 37 U/L (16-63) 09/20/21 12:45 Aspartate Amino Transf (AST/SGOT) 24 U/L (15-37) 09/20/21 12:45 Coagulation Panel: No Data to Display Cardiac Panel: No Data to Display Arterial Blood Gas: No Data to Display Venous Blood Gas: No Data to Display Pancreas Panel: No Data to Display Thyroid Panel: No Data to Display Infectious Disease: Coronavirus (COVID-19)(PCR) Negative (Negative) 09/20/21 12:50 Coronavirus 2019 Source Nasal/Nares 09/20/21 12:50 Blood Cultures: No Data to Display Toxicology Panel: No Data to Display Imaging and Studies Imaging and Studies Study information below may be from another EMR and interpreted by another provider. Please see original notes in EMR for more complete details. Echocardiogram Summary: 09/21/21 EF 57%, mild to mod MR and TR, Ascending aorta dilated at 4.1 cm, normal size aortic root. Anesthesia Assessment and Plan Anesthesia History Personal History: No History of Anesthesia Complications Family History: No Family History of Anesthesia Complications Exercise Tolerance Exercise Tolerance: Metabolic Equivalents>4 Pertinent Negatives Pertinent Negatives: No Symptoms of GERD, No Major Cardiovascular Symptoms or Complaints, No Major Pulmonary Symptoms or Complaints and No History of CVA/TIA Cardiac & Pulmonary Exam Cardiac Exam: Normal S1/S2 Heart Sounds Pulmonary Exam: Clear Bilateral Breath Sounds Implantable Cardiac Device Does patient have a Pacemaker or an ICD?: No Airway Exam Known Difficult Airway: No Mallampati Class: 2 Mouth Opening: Normal (> 3cm) Thyromental Distance: Greater than 3 cm Neck Range of Motion: Full ROM Neck Circumference: Normal Teeth Condition: Normal Dentition ASA Classification ASA Score: ASA 2 Emergency Case?: No NPO Status NPO Status: NPO Clears >2 hours, Solids >8 hours Anesthesia Plan Resuscitation Status: Full Code Anesthesia Technique: General Anesthesia Airway Planned: LMA Monitors Used: Standard Monitors Preoperative Comments:: OH and CABG 10 years or more ago per patient. No chest pain or SOB since. Very active.
[2021-09-23] MEDS: Tamsulosin 0.4 MG CAPCR PO (08:54)
[2021-09-23] MEDS: Metoprolol CR 25 MG TABCR PO ×2 (08:54→20:05)
[2021-09-23] MEDS: Atorvastatin 40 MG TAB PO (08:54)
[2021-09-23] MEDS: Aspirin E.C. 81 MG TABEC PO (08:55)
[2021-09-23] MEDS: Lisinopril 5 MG TAB PO (08:55)
[2021-09-23] MEDS: Venlafaxine 150 MG CAPCR PO (08:55)
[2021-09-23] MEDS: VANCOMYCIN 1,250 MG in Normal Saline 250 ML 166.667 MG IVPB (11:02)
[2021-09-23] MEDS: Normal Saline Flush 10 ML SYR IVP ×2 (11:03→21:32)
[2021-09-23] MEDS: Bupivacaine 0.25% Pres-Free 30 ML VIAL (14:25)
--- NOTE | 2021-09-23 15:02 | W.ANESPOSTOP ---
Postoperative Evaluation Date, Time and Location Date Performed: 09/23/21 Time Performed: 15:02 Patient Location: Day Surgery Unit Vital Signs Most Recent Imported Vital Signs: Most Recent Vital Signs Temp Pulse Resp BP Pulse Ox 37.2 C 79 20 137/76 96 09/23/21 11:41 09/23/21 11:41 09/23/21 11:41 09/23/21 11:41 09/23/21 11:41 Pain Score Most Recent Pain Score: Most Recent Pain Score Pain Level [Left Elbow] 1 09/21/21 15:48 Pain Level 0 09/23/21 11:41 Assessment Mental Status: Arousable with meaningful communication Airway and Respiratory Function: Patent airway with normal (patient baseline) respiratory exam Cardiovascular Function: Hemodynamically Stable Hydration Status: Adequately Hydrated Nausea & Vomiting: No Nausea or Vomiting Pain: Pain is tolerable per patient Peripheral Nerve Block: Patient did not receive a nerve block
--- NOTE | 2021-09-23 15:21 | ROE_ITS ---
Date of service: 09/23/21 Time of Service: 14:15 Operative Note Operative Note DATE OF PROCEDURE: 09/23/21 PRE-OP DIAGNOSIS: Septic Bursitis - Left Elbow PROCEDURE: Irrigation debridement of the left olecranon bursa SURGEON: Ezra Valentin SHOT POLISHER AND INSPECTOR: Patrica Nick Refer to Anesthesia Record ESTIMATED BLOOD LOSS: 50 PATHOLOGY: other (Cultures from elbow aspirate as well as olecranon bursa were sent) COMPLICATIONS: None Indications: Bora is a 76-year-old who suffered trauma to the olecranon process of the left elbow which resulted in abrasion which secondarily got infected. He was treated antibiotics but continued to have fevers and pain and swelling about the left elbow. Therefore, I recommend irrigation debridement of the left olecranon bursa. I reviewed the risk of the procedure to include bleeding, continued infection, pain, stiffness, wound healing difficulties, need for repeat procedures. Despite these risk, he elected to proceed. Findings: Prior to starting the case I did aspirate the elbow from a lateral approach were obtained 2 cc of relatively normal-appearing joint fluid. This was also sent to the lab. There was a thickened olecranon bursa. This had the appearance of previous infection although there is no significant purulence encountered. I did take a culture swab from within the bursa and sent to the lab for aerobic and anaerobic cultures. Procedure Description: Bora was greeted in the preoperative holding area. His identity was confirmed the correct site was identified. Was previously marked and the consent was previously signed. He is taken to the operating room. He is placed in the supine position. A general anesthetic was administered. Prophylactic antibiotics in the form of cefazolin 2 g was administered. He was then positioned into the right lateral decubitus position. He was placed into a beanbag to hold in this position. All bony prominences including the lateral aspect of the right knee, medial aspect of the left knee, and the axilla was well-padded. Axillary roll was placed. The left arm is in prepped with Betadine and draped in a standard fashion. A timeout is performed for safe surgery. An aspiration of the left elbow was then performed from a lateral approach. Using 22-gauge needle was able to aspirate approximate 2 cc of relatively normal-appearing joint fluid from the left elbow. This was sent to lab for aerobic cultures. I then performed an incision over the posterior aspect of the elbow. I ellipsed the defect of skin out and a full-thickness bite. Entering into the bursa there is some mild amount of fluid but significant thickening and inflammatory changes. I swab the inside of the bursa and sent this for aerobic and anaerobic cultures. Using rongeur and electrocautery I remove the entirety of the bursa. This was taken from the overlying skin and also from the underlying fascia and bone. There was a bony prominence over the medial aspect of the olecranon, enthesophyte, which was smoothed down without causing disruption of the triceps mechanism. There is no clear defect into the elbow joint. There was some minor tracking along the ulnar border but there is no easy separation of fascial planes to suggest fasciitis. The wound was then thoroughly irrigated with 2 L normal saline. There is no additional purulent or infection material seen. The deeper tissues were reapproximated with a 2-0 PDS. The skin was closed with 3-0 nylon interrupted fashion. A well-padded soft dressing was then applied.
--- NOTE | 2021-09-23 16:59 | PDOC.CMPRO ---
- If Service Date Differs Date of service: 09/23/21 Time of Service: 16:59 Care Management Progress Note S/O: Igor was down in the OR when CM attempted to visit with him. He went to the OR to have his elbow drained/washed out by Ortho. His WBC increased today. His MRSA is pending, and the frequency of his IV abx has been increased. CM will continue to follow. A: Bora is a 76 year old male admitted to [facility] on 09/20/21 for sepsis, cellulitis L elbow. P: Anticipate Bora will return home when medically cleared. He will be driven home via private vehicle when ready. He will follow up with his PCP and discharge plan of care. CM will continue to follow.
--- NOTE | 2021-09-23 17:16 | W.PM.PROGNOT ---
Date of Service Date of service: 09/23/21 Time of Service: 17:17 Assessment and Plan Assessment and plan (1) Septic olecranon bursitis of left elbow: Status: Acute Assessment and plan: went to OR for wash out today. will continue cefazolin cultures pending but no bacteria seen on prelim follow labs, cbc, inflammatory markers. followed by orthopedics (2) Ischemic cardiomyopathy: Status: Chronic Assessment and plan: stable. continue asa , elise and betablocker. 09/20/2021 EF 57% on echo (3) Hypertension: Status: Chronic Assessment and plan: blood pressure well controlled continue to monitor and adjust meds if needed (4) BPH (benign prostatic hyperplasia): Status: Chronic Assessment and plan: voiding with no symptoms of retention, continue tamsulosin (5) DVT prophylaxis: Status: Acute Assessment and plan: heparin sc (6) Discharge planning issues: Status: Acute Assessment and plan: anticipate a discharge to home when medically stable. case management following. discussed with Dr Olson Subjective Subjective Patient reports: no new complaints and afebrile Exam Const General: cooperative, healthy appearing, comfortable and no acute distress Nutritional Appearance: average body habitus Orientation: alert, awake and oriented x3 HENMT Head: normal to inspection, normocephalic and atraumatic Mouth: oral mucosae normal Resp Effort & Inspection: normal respiratory effort and able to speak in complete sentences Cardio Rate: regular rate Rhythm: regular rhythm GI Inspection: normal to inspection Palpation: soft Auscultation: normal bowel sounds Skin General skin exam: other (dressing to left elbow intact, no erythema extending beyond elise wrap) Neuro General: patient alert, patient awake and patient oriented x3 Cognition: normal cognition Speech: speech normal Gait: normal gait Extrem General: normal to inspection Objective Last Vital Signs Temp 36.7 C 09/23/21 16:06 Pulse 69 09/23/21 16:06 Resp 16 09/23/21 16:06 BP 115/70 09/23/21 16:06 Pulse Ox 96 09/23/21 16:06 Laboratory Results - last 24 hr 09/23/21 09:20 Vancomycin Trough 9.0 L PAWSS Have you Been Recently Intoxicated or Drunk Within the Last 30 days?: No Have you Ever Experienced Previous Episodes of Alcohol Withdrawal?: No Have you ever Experienced Withdrawal Seizures?: No Have you ever Experienced Delirium Tremens(DT)s?: No Have you ever undergone Alcohol Rehabilitation Treatment (i.e, inpt ot outpatient treatment programs)?: No Have you ever Experienced Blackouts?: No Have you ever Combined Alcohol with other Downers within the last 90 days?: No Have you ever Combined Alcohol with any other Substance of Abuse during the last 90 days?: No Positive Blood Alcohol level on Presentation? [PCS.BAL]: No Evidence of Increased Autonomic Activity (i.e. HR>120, tremor, sweating, agitation, nausea)?: No Result: 0
[2021-09-23] MEDS: Heparin 5,000 UNITS/ML VIAL 5000 UNITS SC (17:38)
[2021-09-23] MEDS: ceFAZolin 2,000 MG in Normal Saline 100 ML 200 MG IV (21:32)
[2021-09-23] MEDS: Acetaminophen 325 MG TAB 650 MG PO (21:32)
[2021-09-24] MEDS: Heparin 5,000 UNITS/ML VIAL 5000 UNITS SC ×2 (00:34→07:47)
[2021-09-24 03:20] VITALS: BP 126/69; PULSE 81; RESP 17; TEMP 37.3; O2SAT 98
[2021-09-24] MEDS: Normal Saline Flush 10 ML SYR IVP (05:16)
[2021-09-24] MEDS: ceFAZolin 2,000 MG in Normal Saline 100 ML 200 MG IV (05:16)
[2021-09-24] MEDS: Normal Saline Flush 10 ML SYR (05:52)
[2021-09-24 06:48] LABS: Abs Immature Grans 0.11 10^3/uL (0.0-0.06); Absolute Basophil Count 0.03 10^3/uL (0.0-0.2); Absolute Lymphocyte Count 0.62 10^3/uL (1.2-3.4); Absolute Monocyte Count 0.66 10^3/uL (0.1-0.8); Basophils % 0.2; HCT 37.6 % (40.0-50.0); HGB 12.3 g/dL (13.5-17.5); Immature Grans % 0.7; MCH 26.6 pg (27.0-33.0); MCHC 32.7 % (32.0-36.0); MCV 81 fL (80-95); MPV 11.7 fL (8.0-11.0); Monocytes % 4.3; Neutrophils % 90.8; Platelet Count 180 10^3/uL (130-400); RBC 4.63 10^6/uL (4.36-5.78); RDW 15.3 % (11.8-14.1); RDW-SD 45.4 fL; WBC 15.42 10^3/uL (4.4-10.8)
[2021-09-24 06:52] LABS: Anion Gap 7.5 mmol/L (3-11); BUN 21 mg/dL (7-18); CO2 25.5 mmol/L (21.0-32.0); CREATININE 0.9 mg/dL (0.70-1.30); Calcium 8.5 mg/dL (8.5-10.1); Chloride 104 mmol/L (98-107); Glucose 128 mg/dL (74-106); Potassium 4.2 mmol/L (3.5-5.1); Sodium 137 mmol/L (136-145)
[2021-09-24 07:28] VITALS: BP 145/79; PULSE 77; RESP 16; TEMP 36.1; O2SAT 98
[2021-09-24] MEDS: Metoprolol CR 25 MG TABCR PO (07:47)
[2021-09-24] MEDS: Aspirin E.C. 81 MG TABEC PO (07:47)
[2021-09-24] MEDS: Venlafaxine 150 MG CAPCR PO (07:47)
[2021-09-24] MEDS: Lisinopril 5 MG TAB PO (07:47)
[2021-09-24] MEDS: Atorvastatin 40 MG TAB PO (07:47)
[2021-09-24] MEDS: Tamsulosin 0.4 MG CAPCR PO (07:47)
--- NOTE | 2021-09-24 09:35 | DSE_ITS ---
Date of service: 09/24/21 Time of Service: 09:35 DS: Diagnosis Discharge Diagnosis (1) Septic olecranon bursitis of left elbow: Status: Acute (2) Ischemic cardiomyopathy: Status: Chronic (3) Hypertension: Status: Chronic (4) BPH (benign prostatic hyperplasia): Status: Chronic Discharge Plan Disposition Patient Disposition: HOME Condition: Improving Discharge Details Reason For Visit: Sepsis,Cellulitis L Elbow Admit Date/Time: 09/20/21 14:48 Admit Provider: Rosmery Weaver Attending Provider: Rosmery Weaver Primary Care Provider: [facility] Hospital Course: Mr Anton is a 76 year old male with history of coronary artery disease s/p CABG x 4, ICMO/CHFrEF, HTN, hyperlipidemia, BPH, depression with anxiety, who presented to [facility] ED with redness to left arm/elbow after scraping the skin on it 4 days prior. He noticed more redness and swelling and then he could not bend it. In the ED, he was febrile to 38.4 with rigors. He also reported a headache. He was tachycardic and had a leukocytosis of 14.56. His CRP was 7.66. Xray of the elbow showed marked soft tissue swelling but no fractures or osteomyelitis. Dr Valle of orthopedics was consulted by ED and recommended a medical admission with broad spectrum antibiotics. Hospitalist admitted him with a orthopedics consultation. He was brought to the OR for irrigation debridement of the left olecranon bursa. He is feeling much improved. vitals have been stable, no further fevers. His discharge was discussed with Dr Valentin who recommends one week of oral antibiotics with outpatient follow up. He is being discharged to home with no services discussed with DR Olson Home Meds and New Rx's Prescriptions: New acetaminophen 325 mg Tablet 650 mg PO Q4H PRN PRNQty: 0 0RF cephalexin 500 mg capsule 500 mg PO QID Qty: 28 0RF Continued aspirin [Adult Low Dose Aspirin] 81 mg tablet,delayed release (DR/EC) 81 mg PO DAILY tamsulosin 0.4 mg capsule 0.4 mg PO DAILY metoprolol succinate 25 mg tablet extended release 24 hr 25 mg PO BID atorvastatin 40 mg tablet 40 mg PO DAILY venlafaxine [Effexor XR] 150 mg capsule,extended release 24hr 150 mg PO DAILY lisinopril 5 mg tablet 5 mg PO DAILY Discharge Instructions Instructions: Elbow Bursitis (ED) Additional Instructions: ice to surgical site 4-5 times daily for 20-30 minutes keep dressing clean dry and intact. Stand Alone Forms: Nursing Discharge Form Referrals: Ezra Valentin MD [ [facility] STAFF PHYSICIAN] - 10/05/21 8:00 am () Activity:: Activity as Tolerated Equipment/Supplies:: No Equipment Needed Diet:: As Tolerated Discharge Orders Discharge Orders: Discharge Order (Routine); Ordered 09/24/21 Ordered By: Melvi Pandey Discharge Data Discharge Date/Time-TO BE ENTERED AT DEPARTURE: 09/24/21 10:57 DS: Summary Time Spent with Patient providing and/or coordinating discharge services: Less than 30 minutes Status at Discharge Functional status at discharge: independent ambulation Overall status at discharge: patient is progressing back to baseline Mental Status: mental status grossly normal Speech and Movement: speech and movement normal Mood: congruent mood Affect: normal affect Exam Const General: cooperative, healthy appearing, comfortable and no acute distress Nutritional Appearance: average body habitus Orientation: alert, awake and oriented x3 HENMT Head: normal to inspection, normocephalic and atraumatic Mouth: oral mucosae normal Resp Effort & Inspection: normal respiratory effort and able to speak in complete sentences Cardio Rate: regular rate Rhythm: regular rhythm GI Inspection: normal to inspection Palpation: soft Auscultation: normal bowel sounds Skin General skin exam: other (dressing to left elbow intact, no erythema extending beyond elise wrap) Neuro General: patient alert, patient awake and patient oriented x3 Cognition: normal cognition Speech: speech normal Gait: normal gait Extrem General: normal to inspection and other (good pulse strength and sensation distal left upper extremity) Psych Mental Status: mental status grossly normal Speech and Movement: speech and movement normal Mood: congruent mood Affect: normal affect DS: Data Vitals/I&O Vitals and I&O: Vital Signs Temperature 36.1 C L 09/24/21 07:28 Temperature Source Tympanic 09/24/21 07:28 Pulse 77 09/24/21 07:28 Pulse Rhythm Regular 09/24/21 08:30 Respiratory Rate 16 09/24/21 07:28 Respiratory Effort Non-Labored 09/24/21 08:30 Respiratory Depth Normal 09/24/21 08:30 Respiratory Pattern Normal 09/24/21 08:30 Blood Pressure 145/79 H 09/24/21 07:28 Blood Pressure Position Sitting 09/20/21 12:08 Pulse Oximetry 98 09/24/21 07:28 Respiratory End-tidal CO2 32 09/23/21 15:43 Oxygen Delivery Method Room Air 09/24/21 07:28 Oxygen Flow Rate 0 09/24/21 07:28 Pain Level 0 09/24/21 07:28 Comment 09/22/21 17:37 Intake & Output 09/23/21 09/23/21 09/24/21 11:59 23:59 11:59 Intake Total 0 / 1495 1495 / 1495 100 / 100 Balance 0 / 1495 1495 / 1495 100 / 100 Weight 77.8 kg Intake: IV 0 / 1255 1255 / 1255 100 / 100 Oral 240 / 240 Other: Urine Color Yellow Urine Appearance Clear Comment pT goes to bathroom independently. pe pet voided in toilet Emesis Description None Voiding Methods Toilet Toilet Data Completed and Pending Labs on day of discharge: Labs from last 24 hours 09/24/21 09/24/21 09/23/21 06:00 05:50 09:20 WBC 15.42 H RBC 4.63 Hgb 12.3 L Hct 37.6 L MCV 81 MCH 26.6 L MCHC 32.7 RDW 15.3 H Plt Count 180 MPV 11.7 H Immature Gran % 0.7 Neutrophils % 90.8 Lymphocytes % 4.0 Monocytes % 4.3 Eosinophils % 0.0 Basophils % 0.2 Nucleated RBC % 0.0 Absolute Neutrophils 14.00 H Absolute Lymphocytes 0.62 L Absolute Monocytes 0.66 Absolute Eosinophils 0.00 Absolute Basophils 0.03 Sodium 137 Potassium 4.2 Chloride 104 Carbon Dioxide 25.5 Anion Gap 7.5 BUN 21 H Creatinine 0.9 Estimated GFR/1.73 m2 >= 60.00 Glucose 128 H Calcium 8.5 Vancomycin Trough 9.0 L 09/23/21 20:45 Blood Blood Culture - Pending 09/23/21 20:45 Blood Blood Culture - Pending 09/23/21 14:08 Elbow - Left Surgical Culture - Pending 09/23/21 14:08 Synovial - Left Joint Body Fluid Culture - Pending 09/23/21 14:08 Elbow - Left Anaerobic Culture - Pending Preliminary micro results at discharge 09/23/21 20:45 Blood Culture - Pending Blood 09/23/21 20:45 Blood Culture - Pending Blood 09/23/21 14:08 Surgical Culture - Pending Elbow - Left 09/23/21 14:08 Body Fluid Culture - Pending Synovial - Left Joint 09/20/21 12:30 Blood Culture - Preliminary Blood NO GROWTH 72 HOURS 09/20/21 12:45 Blood Culture - Preliminary Blood NO GROWTH 72 HOURS 09/23/21 14:08 Anaerobic Culture - Pending Elbow - Left PFSH All Active Problems (Updated 09/21/21 @ 21:27 by Rosmery Weaver MD) Septic olecranon bursitis of left elbow (Acute) Discharge planning issues (Acute) DVT prophylaxis (Acute) Ischemic cardiomyopathy (Chronic) Sepsis (Acute) Cellulitis of arm, left (Acute) Closed fracture of fifth metacarpal bone of left hand (Acute 08/27/21) Rupture of right proximal biceps tendon (Acute 03/07/20) Depression with anxiety (Acute) Hypertension (Chronic) Hx of non-ST elevation myocardial infarction (NSTEMI) (Acute) BPH (benign prostatic hyperplasia) (Chronic) Status post coronary artery bypass graft (Acute) Cardiomyopathy (Acute) Hyperlipidemia (Acute) Surgical History S/P CABG x 4 Family History Daughter Cancer hematologic malignancy - the patient is not sure what type Social History Smoking/Tobacco Use Status: Never Smoking risk assessment performed?: Yes Alcohol Intake: current Alcohol Intake frequency: a few times a month Alcohol type: beer Drug use: Socially Substance use type: marijuana Current gender identity: male Do you feel safe at home: Yes Do you feel safe in your relationship?: Yes
--- NOTE | 2021-09-24 11:10 | PDOC.CMDIS ---
- If Service Date Differs Date of service: 09/24/21 Time of Service: 11:10 LACE Index Scoring Tool - Questions: Length of Stay (in days): 4 - 6 Acuity (Admit via E.D.?): Yes Comorbidities: Previous M.I. E.D. Visits: 2 - Answers: Total Score: 10 Risk of Readmission: High Risk Care Management Discharge Reason for Hospitalization: sepsis, cellulitis L elbow Discharge Plan: Bora returned home today with no new services. He was driven home via private vehicle. He will follow up with his PCP and discharge plan of care. He is happy to be going home. Patient/Family Education Needs: Review discharge instructions and limitations, discussion of self care needs including ask me three.
== END 2021-09-24 10:57 | disposition home or self-care (01) | DRG 500 ==
LOC: ER 14:15 → MS 16:30
PROVIDERS: Internal Medicine; Nurse Practitioner Acute Care; Student in an Organized Health Care Education/Training Program; Admitting Provider Internal Medicine; Emergency Provider Physician Assistant; PCP Internal Medicine; Visit Provider Internal Medicine
PROC: 0R9M3ZX Drainage of Left Elbow Joint, Percutaneous Approach, Diagnostic (ICD-10-PCS; CPT 20605; principal; 2021-09-23 13:15)
DX: M71.122 Other infective bursitis, left elbow (principal); A41.9 Sepsis, unspecified organism; I50.20 Unspecified systolic (congestive) heart failure; L03.114 Cellulitis of left upper limb; B95.62 Methicillin resistant Staphylococcus aureus infection as the cause of diseases classified elsewhere; I11.0 Hypertensive heart disease with heart failure; E86.0 Dehydration; I08.1 Rheumatic disorders of both mitral and tricuspid valves; I25.5 Ischemic cardiomyopathy; E78.5 Hyperlipidemia, unspecified; N40.0 Benign prostatic hyperplasia without lower urinary tract symptoms; F41.8 Other specified anxiety disorders; I25.2 Old myocardial infarction; Z95.1 Presence of aortocoronary bypass graft
CPT/HCPCS: 20605; 24105; 36415; 80048; 80053; 84145; 85652; 87040; 87077; 87081; 87635; 96361; 96365; 96375; 96376; 99223; 99284; 99285; 73080; 80202; 81003; 81015; 83605; 83735; 85025; 86140; 87070; 87075; 87186; 87205; 93306; 99233; 99238; J0690; J0696; J1100; J1644; J1885; J2405; J2704

== ENCOUNTER → 2021-10-05 07:50 | Outpatient (BNVA) | payer MEDICARE, MEDICAID, SELFPAY | PROVIDERS: PCP Internal Medicine; Referring Provider Internal Medicine; Visit Provider Physician Assistant | DX: Z47.89 Encounter for other orthopedic aftercare (principal); M71.122 Other infective bursitis, left elbow ==

== ENCOUNTER 2021-12-14 16:37 | Emergency (ER) | payer MEDICARE, MEDICAID, SELFPAY ==
[2021-12-14 16:41] VITALS: BP 155/83; PULSE 65; RESP 18; TEMP 36.8; O2SAT 100
--- NOTE | 2021-12-14 16:45 | DI.RAD_ITS ---
Exam(s) XR FOOT LT COMPLETE EXAM: XR FOOT LT COMPLETE CLINICAL HISTORY: foreign body puncture wound, plantar. TECHNIQUE: 2D digital imaging was performed of the left foot. Three images were obtained. AP, obli que and lateral views were obtained. COMPARISON: No exams were available for comparison FINDINGS: BONES: No acute fracture is present. No bony destructive lesion is seen. JOINTS: No dislocation present. SOFT TISSUE: Mild soft tissue swelling is present. No radiopaque foreign bodies seen in the soft tis sues. IMPRESSION: No evidence of a radiopaque foreign body. DATA REPOSITORY: RADIATION DOSE DELIVERED:
--- NOTE | 2021-12-14 17:39 | ED.GENADUL_ITS ---
Discharge Plan Disposition Patient Disposition: HOME Condition: Stable Discharge Details Clinical Impression: Cellulitis, Puncture wound Primary Care Provider: Jacky Gil ED Provider: Josué Vera Home Meds and New Rx's Prescriptions: New clindamycin HCl 300 mg capsule 300 mg PO QID 7 Days Qty: 28 0RF No Action aspirin [Adult Low Dose Aspirin] 81 mg tablet,delayed release (DR/EC) 81 mg PO DAILY tamsulosin 0.4 mg capsule 0.4 mg PO DAILY metoprolol succinate 25 mg tablet extended release 24 hr 25 mg PO BID atorvastatin 40 mg tablet 40 mg PO DAILY venlafaxine [Effexor XR] 150 mg capsule,extended release 24hr 150 mg PO DAILY lisinopril 5 mg tablet 5 mg PO DAILY acetaminophen 325 mg Tablet 650 mg PO Q4H PRN PRNQty: 0 0RF Discharge Instructions Instructions: Puncture Wound (ED), Cellulitis (ED) Medical Decision Making 76-year-old male presents several days after stepping on a foreign object while working, puncture wound sustained to plantar aspect of left foot, hemostatic, spontaneous drainage of material from wound last night, does have some surrounding induration and erythema, no fluctuance purulence or crepitance appreciated, x-ray obtained to assess for foreign body, likely localized cellulitis must consider abscess, no clinical evidence of fasciitis or systemic signs of illness. Will start empiric clindamycin to cover strep staph and anaerobes given mechanism of injury, patient received his tetanus booster yesterday. Likely home with close follow-up and p.o. antibiotic 18: 38 no evidence of foreign body on x-ray or bedside ultrasound, glucose subcutaneous cobblestoning consistent with cellulitis no definitive pocket that would indicate abscess cavity. Patient treated with clindamycin here will be given clindamycin prescription, home care instructions and return precautions HPI General Date/Time Provider Initiated Documentation: 12/14/21 16:52 . HPI Narrative: 76-year-old male presents several days after stepping on foreign object while working, puncture wound to bottom of left foot, patient noticed swelling over the past several days and spontaneous rupture and drainage from foot last night. Denies fevers chills nausea vomiting or systemic signs of illness. Had a tetanus shot yesterday Related Data Home Medications Medication Instructions Recorded Confirmed aspirin 81 mg tablet,delayed 81 mg PO DAILY 03/18/20 12/14/21 release (Adult Low Dose Aspirin) atorvastatin 40 mg tablet 40 mg PO DAILY 03/18/20 12/14/21 lisinopril 5 mg tablet 5 mg PO DAILY 03/18/20 12/14/21 metoprolol succinate 25 mg 25 mg PO BID 03/18/20 12/14/21 tablet,extended release 24 hr tamsulosin 0.4 mg capsule 0.4 mg PO DAILY 03/18/20 12/14/21 venlafaxine 150 mg 150 mg PO DAILY 03/18/20 12/14/21 capsule,extended release 24 hr (Effexor XR) acetaminophen 325 mg tablet 650 mg PO Q4H PRN PRN #0 tabs 09/24/21 12/14/21 clindamycin HCl 300 mg capsule 300 mg PO QID 7 days #28 caps 12/14/21 Previous Rx's Medication Instructions Recorded acetaminophen 325 mg tablet 650 mg PO Q4H PRN PRN #0 tabs 09/24/21 clindamycin HCl 300 mg capsule 300 mg PO QID 7 days #28 caps 12/14/21 Allergies Allergy/AdvReac Type Severity Reaction Status Date / Time bupropion [From Wellbutrin] Allergy Verified 10/05/21 07:53 General Stated Complaint: Cellulitis FERNIE: 3 Review of Systems Narrative: Review of Systems Constitutional: negative Eyes: negative ENT: negative Cardiovascular: negative Respiratory: negative Gastrointestinal: negative : negative Musculoskeletal: Puncture wound left foot Skin: negative Neurologic: negative Psych: negative PFSH All Active Problems (Updated 12/14/21 @ 18:39 by Josué Vera MD) Cellulitis (Acute) Puncture wound (Acute) Septic olecranon bursitis of left elbow (Acute) Status post debridement DOS: 09/23/2021 Ischemic cardiomyopathy (Chronic) Sepsis (Acute) Cellulitis of arm, left (Acute) Rupture of right proximal biceps tendon (Acute 03/07/20) Depression with anxiety (Acute) Hypertension (Chronic) Hx of non-ST elevation myocardial infarction (NSTEMI) (Acute) BPH (benign prostatic hyperplasia) (Chronic) Status post coronary artery bypass graft (Acute) Cardiomyopathy (Acute) Hyperlipidemia (Acute) Surgical History S/P CABG x 4 Family History Daughter Cancer hematologic malignancy - the patient is not sure what type Social History Smoking/Tobacco Use Status: Never Smoking risk assessment performed?: Yes Alcohol Intake: current Alcohol Intake frequency: a few times a month Alcohol type: beer Drug use: Socially Substance use type: marijuana Current gender identity: male Do you feel safe at home: Yes Do you feel safe in your relationship?: Yes Exam Narrative Exam Narrative: Physical Examination General: alert, awake, cooperative, resting comfortably, no acute distress HEENT: normocephalic, atraumatic; PERRL, EOM intact, conjunctiva normal; no nasal discharge; moist mucous membranes, oral and pharyngeal mucosa normal, tolerating secretions Neck: supple, trachea midline; full ROM Chest: normal to inspection Respiratory: normal respiratory effort, speaking in full sentences, clear to auscultation, no wheezing, rales or rhonchi Cardiac: regular rate, regular rhythm, S1S2 intact, no murmurs rubs or gallops GI: abdomen soft, non-tender, non-distended; no palpable mass or hepatosplenomegaly Skin: See extremities Neuro: AAOx3, normal speech, moving all extremities Extremities: Open puncture wound to plantar aspect of left foot surrounding induration and erythema, punctate area at center of lesion, no active purulent drainage or bleeding, no fluctuance no crepitus Psych: Appropriate mood and affect Course Vital Signs Vital signs: Vital Signs Temperature 36.8 C 12/14/21 16:41 Pulse 65 12/14/21 16:41 Respiratory Rate 18 12/14/21 16:41 Blood Pressure 155/83 H 12/14/21 16:41 Pulse Oximetry 100 12/14/21 16:41 Temperature 36.8 C 12/14/21 16:41 Temperature Source Temporal Artery Scan 12/14/21 16:41 Pulse 65 12/14/21 16:41 Respiratory Rate 18 12/14/21 16:41 Respiratory Effort Non-Labored 12/14/21 16:52 Blood Pressure 155/83 H 12/14/21 16:41 Blood Pressure Position Sitting 12/14/21 16:41 Pulse Oximetry 100 12/14/21 16:41 Oxygen Delivery Method Room Air 12/14/21 16:41 Oxygen Flow Rate 0 10/10/22 16:41 Pain Level 2 12/14/21 16:41 PAWSS Have you Been Recently Intoxicated or Drunk Within the Last 30 days?: No Have you Ever Experienced Previous Episodes of Alcohol Withdrawal?: No Have you ever Experienced Withdrawal Seizures?: No Have you ever Experienced Delirium Tremens(DT)s?: No Have you ever undergone Alcohol Rehabilitation Treatment (i.e, inpt ot outpatient treatment programs)?: No Have you ever Experienced Blackouts?: No Have you ever Combined Alcohol with other Downers within the last 90 days?: No Have you ever Combined Alcohol with any other Substance of Abuse during the last 90 days?: No Result: 0
[2021-12-14] MEDS: Clindamycin 300 MG CAP PO (17:45)
--- NOTE | 2021-12-14 18:27 | DI.VRAD_ITS ---
PROCEDURE INFORMATION: Exam: XR Left Foot Exam date and time: 12/14/2021 5:25 PM Age: 76 years old Clinical indication: Other: Foreign body puncture wound, plantar TECHNIQUE: Imaging protocol: Radiologic exam of the Left foot. Views: 3 or more views. COMPARISON: No relevant prior studies available. FINDINGS: Bones/joints: There is no evidence of acute fracture. There is no evidence of joint malalignment or dislocation. Soft tissues: Soft tissue swelling is present. No evidence of radiopaque foreign body. IMPRESSION: 1. Soft tissue swelling is present. 2. No evidence of radiopaque foreign body. 3. No evidence of acute fracture. 4. No evidence of acute dislocation. Dictated and Authenticated by: Adonay Mena MD. Ordering:CHAD Moses MD
[2021-12-14 18:44] VITALS: BP 140/81; PULSE 73; RESP 18; TEMP 36.6; O2SAT 97
== END 2021-12-14 18:48 | disposition home or self-care (01) ==
PROVIDERS: Emergency Provider Emergency Medicine; PCP Internal Medicine
DX: S91.332A Puncture wound without foreign body, left foot, initial encounter (principal); L03.116 Cellulitis of left lower limb; Z79.82 Long term (current) use of aspirin; W22.8XXA Striking against or struck by other objects, initial encounter; Y93.89 Activity, other specified
CPT/HCPCS: 99283; 73630; 99284

== ENCOUNTER 2022-07-15 16:16 | Emergency (ER) | payer MEDICARE, SELFPAY ==
[2022-07-15 16:20] VITALS: BP 149/98; PULSE 77; RESP 14; TEMP 36.9; O2SAT 98
--- NOTE | 2022-07-15 17:13 | ED.GENADUL_ITS ---
Discharge Plan Disposition Patient Disposition: Home Discharge Details Clinical Impression: Tinea pedis of right foot, Cellulitis Primary Care Provider: Jacky Gil ED Provider: Venus Owens Home Meds and New Rx's Prescriptions: New cephalexin 500 mg tablet 500 mg PO Q6H 7 Days Qty: 28 0RF Continued aspirin [Adult Low Dose Aspirin] 81 mg tablet,delayed release (DR/EC) 81 mg PO DAILY tamsulosin 0.4 mg capsule 0.4 mg PO DAILY metoprolol succinate 25 mg tablet extended release 24 hr 25 mg PO BID atorvastatin 40 mg tablet 40 mg PO DAILY venlafaxine [Effexor XR] 150 mg capsule,extended release 24hr 150 mg PO DAILY lisinopril 5 mg tablet 5 mg PO DAILY acetaminophen 325 mg Tablet 650 mg PO Q4H PRN PRNQty: 0 0RF Discharge Instructions Instructions: Athlete's Foot (ED), Cellulitis (ED) Additional Instructions: purchase athlete's foot spray and use it twice daily for 14 days, this is very important Take antibiotic as prescribed Yogurt daily while on the antibiotic Allow your foot to air dry as much as possible, bleach your shower as this is very contagious Return with spreading redness, fever, worsening pain You will likely not notice improvement for the next 4 to 5 days Take Tylenol as needed for discomfort, 650 every 6 hours do not exceed 3 g daily Return with worsening pain, fever, spreading redness, or with any new or worsening complaints Recheck with your doctor in 72 hours Referrals: Jacky Gil [Primary Care Provider] - Discharge Data Discharge Date/Time-TO BE ENTERED AT DEPARTURE: 07/15/22 17:33 Medical Decision Making 77-year-old gentleman presents with cellulitis likely secondary to tinea pedis infection with open lesion We will place on Keflex Encouraged to allow exposure to air Patient is nontoxic in appearance Return precautions reviewed and patient expressed understanding, recheck in 48 hours recommended HPI General Date/Time Provider Initiated Documentation: 07/15/22 17:13 . HPI Narrative: This 77-year-old male presents with a wound in between the fourth and fifth digits on his right foot. He was evaluated by his primary care physician and started on antifungals topically. Denies fever or chills. States his pain is increased dramatically Related Data Home Medications Medication Instructions Recorded Confirmed aspirin 81 mg tablet,delayed 81 mg PO DAILY 03/18/20 07/15/22 release (Adult Low Dose Aspirin) atorvastatin 40 mg tablet 40 mg PO DAILY 03/18/20 07/15/22 lisinopril 5 mg tablet 5 mg PO DAILY 03/18/20 07/15/22 metoprolol succinate 25 mg 25 mg PO BID 03/18/20 07/15/22 tablet,extended release 24 hr tamsulosin 0.4 mg capsule 0.4 mg PO DAILY 03/18/20 07/15/22 venlafaxine 150 mg 150 mg PO DAILY 03/18/20 07/15/22 capsule,extended release 24 hr (Effexor XR) acetaminophen 325 mg tablet 650 mg PO Q4H PRN PRN #0 tabs 09/24/21 07/15/22 cephalexin 500 mg tablet 500 mg PO Q6H 7 days #28 tabs 07/15/22 Previous Rx's Medication Instructions Recorded acetaminophen 325 mg tablet 650 mg PO Q4H PRN PRN #0 tabs 09/24/21 cephalexin 500 mg tablet 500 mg PO Q6H 7 days #28 tabs 07/15/22 Allergies Allergy/AdvReac Type Severity Reaction Status Date / Time bupropion [From Wellbutrin] Allergy Verified 07/15/22 16:25 General Stated Complaint: RashLesion FERNIE: 4 PFSH All Active Problems (Updated 07/15/22 @ 17:18 by STEPHEN Clay) Tinea pedis of right foot (Acute) Cellulitis (Acute) Septic olecranon bursitis of left elbow (Acute) Status post debridement DOS: 09/23/2021 Ischemic cardiomyopathy (Chronic) Sepsis (Acute) Cellulitis of arm, left (Acute) Rupture of right proximal biceps tendon (Acute 03/07/20) Depression with anxiety (Acute) Hypertension (Chronic) Hx of non-ST elevation myocardial infarction (NSTEMI) (Acute) BPH (benign prostatic hyperplasia) (Chronic) Status post coronary artery bypass graft (Acute) Cardiomyopathy (Acute) Hyperlipidemia (Acute) Surgical History S/P CABG x 4 Family History Daughter Cancer hematologic malignancy - the patient is not sure what type Social History Smoking/Tobacco Use Status: Never Smoking risk assessment performed?: Yes Alcohol Intake: current Alcohol Intake frequency: a few times a month Alcohol type: beer Drug use: Socially Substance use type: marijuana Current gender identity: male Do you feel safe at home: Yes Do you feel safe in your relationship?: Yes Exam Extrem Other: Macerated lesion between fourth and fifth digits on right foot, open wounds with mild erythema, no crepitus, no abscess, tenderness with palpation, neurovascular intact, no lymphangitis Course Vital Signs Vital signs: Vital Signs Temperature 36.9 C 07/15/22 16:20 Pulse 77 07/15/22 16:20 Respiratory Rate 14 07/15/22 16:20 Blood Pressure 149/98 H 07/15/22 16:20 Pulse Oximetry 98 07/15/22 16:20 Temperature 36.9 C 07/15/22 16:20 Temperature Source Temporal Artery Scan 07/15/22 16:20 Pulse 77 07/15/22 16:20 Respiratory Rate 14 07/15/22 16:20 Respiratory Effort Normal 07/15/22 16:24 Blood Pressure 149/98 H 07/15/22 16:20 Blood Pressure Position Sitting 07/15/22 16:20 Pulse Oximetry 98 07/15/22 16:20 Oxygen Delivery Method Room Air 07/15/22 16:20 Oxygen Flow Rate 0 07/15/22 16:20 Pain Level 0 07/15/22 16:20 PAWSS Have you Been Recently Intoxicated or Drunk Within the Last 30 days?: No Have you Ever Experienced Previous Episodes of Alcohol Withdrawal?: No Have you ever Experienced Withdrawal Seizures?: No Have you ever Experienced Delirium Tremens(DT)s?: No Have you ever undergone Alcohol Rehabilitation Treatment (i.e, inpt ot outpatient treatment programs)?: No Have you ever Experienced Blackouts?: No Have you ever Combined Alcohol with other Downers within the last 90 days?: No Have you ever Combined Alcohol with any other Substance of Abuse during the last 90 days?: No Result: 0
== END 2022-07-15 17:33 | disposition home or self-care (01) ==
PROVIDERS: Emergency Provider Physician Assistant; PCP Internal Medicine
DX: L03.031 Cellulitis of right toe (principal); I10 Essential (primary) hypertension; B35.3 Tinea pedis
CPT/HCPCS: 99283

== ENCOUNTER 2023-05-08 09:24 | Emergency (ER) | payer MEDICARE, SELFPAY ==
[2023-05-08 09:28] VITALS: BP 159/75; PULSE 69; RESP 18; TEMP 37; O2SAT 98
--- NOTE | 2023-05-08 09:35 | ED.GENADUL_ITS ---
Discharge Plan Disposition Patient Disposition: Home Condition: Stable Discharge Details Clinical Impression: Cellulitis of third toe of right foot Primary Care Provider: Jacky Gil ED Provider: William Perez Home Meds and New Rx's Prescriptions: New doxycycline hyclate 100 mg capsule 100 mg PO BID 10 Days Qty: 20 0RF No Action aspirin [Adult Low Dose Aspirin] 81 mg tablet,delayed release (DR/EC) 81 mg PO DAILY tamsulosin 0.4 mg capsule 0.4 mg PO DAILY metoprolol succinate 25 mg tablet extended release 24 hr 25 mg PO BID atorvastatin 40 mg tablet 40 mg PO DAILY venlafaxine [Effexor XR] 150 mg capsule,extended release 24hr 150 mg PO DAILY lisinopril 5 mg tablet 5 mg PO DAILY acetaminophen 325 mg Tablet 650 mg PO Q4H PRN PRNQty: 0 0RF Discharge Instructions Instructions: Doxycycline (By mouth), Cellulitis (ED) Additional Instructions: You were seen in the emergency department for the likely infection of your right third toe. Please take the prescribed antibiotics sent to [facility] in [place], this antibiotic increases your sunburn rest you should cover up if you are going to be outside in the sun while taking it. Please use therapeutic dosing of Tylenol (acetamenophen) & Advil (ibuprofen) in an alternating fashion as follows: Take 1000mg of Tylenol every 6 hours without missing doses- that is 4 times per day. [facility] in between the Tylenol dosings, take 400-600mg of Advil also on a 6 hour schedule, that is also 4 times per day. The daily maximum dosing of Tylenol is 4000mg, and the daily maximum dosing of Advil is 2400mg. This is safe to do for weeks. Please note that some common cold medications & prescription pain medications may contain acetamenophen and you need to read OTC drug labels and factor that in to maximum daily dosings. I have placed you on the list for podiatry follow-up, please return to the emergency department for severe increase in pain, red streaking up the leg, nausea vomiting, weakness, fever. Referrals: [facility] [Provider Group] Jacky Gil [Primary Care Provider] - Discharge Data Discharge Date/Time-TO BE ENTERED AT DEPARTURE: 05/08/23 11:59 HPI General Date/Time Provider Initiated Documentation: 05/08/23 09:34 . HPI Narrative: 78 year-old male presents to ED today by POV/ambulating with a chief complaint of R 3rd toe pain - dropped a heavy piece of wood on it with onset 5 days ago, now having some redness. Quality described as throbbing, no radiation to purulent drainage, deformity, area is red and swollen without ulceration. Severity is described as mild/10. Palliating factors include nothing specific attempted. Provoking factors include nothing specific. Events leading up to the incident/Associated Symptoms: Patient also complaining of groin pain to a mild degree that is intermittent. Patient not anticoagulated. Related Data Home Medications Medication Instructions Recorded Confirmed aspirin 81 mg tablet,delayed 81 mg PO DAILY 03/18/20 05/08/23 release (Adult Low Dose Aspirin) atorvastatin 40 mg tablet 40 mg PO DAILY 03/18/20 05/08/23 lisinopril 5 mg tablet 5 mg PO DAILY 03/18/20 05/08/23 metoprolol succinate 25 mg 25 mg PO BID 03/18/20 05/08/23 tablet,extended release 24 hr tamsulosin 0.4 mg capsule 0.4 mg PO DAILY 03/18/20 05/08/23 venlafaxine 150 mg 150 mg PO DAILY 03/18/20 05/08/23 capsule,extended release 24 hr (Effexor XR) acetaminophen 325 mg tablet 650 mg (2 x 325 mg) PO Q4H PRN PRN 09/24/21 05/08/23 #0 tabs doxycycline hyclate 100 mg capsule 100 mg PO BID cellulitis 10 days 05/08/23 #20 caps Previous Rx's Medication Instructions Recorded acetaminophen 325 mg tablet 650 mg (2 x 325 mg) PO Q4H PRN PRN 09/24/21 #0 tabs doxycycline hyclate 100 mg capsule 100 mg PO BID cellulitis 10 days 05/08/23 #20 caps Allergies Allergy/AdvReac Type Severity Reaction Status Date / Time bupropion [From Wellbutrin] Allergy Other (See Verified 05/08/23 09:34 Comment) General Stated Complaint: GenMedical FERNIE: 3 Review of Systems All systems reviewed & are unremarkable except as noted in HPI and below Exam Narrative Exam Narrative: GENERAL APPEARANCE: Well-nourished, non-toxic, awake and alert, atraumatic, no acute distress. SKIN: Warm, pink, dry, intact. HEAD: Normocephalic, atraumatic, normal hair distribution for gender/age. EYES: Pupils PERRLA, EOMs intact without nystagmus, normal conjunctiva, no exudates on lids/lashes. ENT: Nares patent, no circumoral cyanosis, no facial swelling NECK: Supple, trachea midline, painless cervical ROM. LUNGS/CHEST: Non-labored respirations, normal A/P diameter, symmetrical expansion, no chest wall deformity HEART (CV/PV): Regular rate, R dorsalis pedis pulse 2+, no peripheral edema, no JVD. ABDOMEN: Soft, non-distended, no guarding, no tenderness. MSK: Normal ROM, no swelling/deformity to bilateral UEs or LEs, moving all extremities without weakness, no cyanosis, spine midline without tenderness, normal curvature. R Foot: Right third toe has contusion without overt laceration or open abrasion, erythema diffusely, brisk capillary refill, sensation intact, no lymphadenitis, dorsalis pedis pulse intact, no purulent drainage NEURO: Mental Status AAOx4 - alert to person, place, time, events No facial droop, no forehead involvement. Motor: No focal weakness - strength 5/5 in bilateral UEs and LEs, proximal and distal, symmetric. Sensory: sensation intact to light touch globally. Gait normal: patient ambulated without ataxia into ED room. PSYCH: euthymic, cooperative, pleasant, appropriate speech Course Vital Signs Vital signs: Vital Signs Temperature 37.0 C 05/08/23 09:28 Pulse 69 05/08/23 09:28 Respiratory Rate 18 05/08/23 09:28 Blood Pressure 159/75 H 05/08/23 09:28 Pulse Oximetry 98 05/08/23 09:28 Temperature 37.0 C 05/08/23 09:28 Temperature Source Temporal Artery Scan 05/08/23 09:28 Pulse 69 05/08/23 09:28 Respiratory Rate 18 05/08/23 09:28 Blood Pressure 159/75 H 05/08/23 09:28 Blood Pressure Position Sitting 05/08/23 09:28 Pulse Oximetry 98 05/08/23 09:28 Oxygen Delivery Method Room Air 05/08/23 09:28 Oxygen Flow Rate 0 05/08/23 09:28 Medical Decision Making This dictation utilizes [id number] dictation software and may contain unedited grammatical errors. 78 y/o M presents to ED today with a chief complaint of R 3rd toe pain, dropped a large piece of wood on it 5 days ago, having pain and contusion, mild redness without purulent drainge. Patient reports no fever, no red streaking up the leg. Patients' medical history: Cardiomyopathy, hyperlipidemia, history of cellulitis and septic arthritis. Family and social history: Noncontributory, stays active. Pertinent exam findings / vital signs include R Foot: Right third toe has contusion without overt laceration or open abrasion, erythema diffusely, brisk capillary refill, sensation intact, no lymphadenitis, dorsalis pedis pulse intact, no purulent drainage. Differential / pathologies of concern include cellulitis, fracture, contusion, nailbed injury. Diagnostic studies of: -X-ray toe-no acute fracture. Interventions of: -Referral for podiatry, no open ulceration to bandage at this time, outpatient antibiotics. ED Course/Assessment/Plan: 78-year-old male presents with right third toe pain from dropping a large piece of wood on his toe 5 days ago. He has contusion with some mild redness, there is no overt lesion with purulent drainage or signs of abscess, he may have injured his nail and may need podiatry follow-up but otherwise I will treat for cellulitis with outpatient antibiotics with strict return criteria for signs of spreading infection discussed. Findings not consistent with lymphadenitis or spreading infection, abscess, fracture, neurovascular compromise. Disposition of cellulitis of third toe of right foot. Patient verbalized understanding of the plan and return to ED criteria and engaged in shared decision making. Medical Records Medical records reviewed: Yes I reviewed the patient's medical records. Imaging Data Radiologic Study: Attestation: I personally reviewed and interpreted this imaging study as follows: Imaging: X-Ray Radiologist's impression: Exam: XR Right Toe(s) Exam date and time: 05/08/2023 10:11 AM Age: 78 years old Clinical indication: Other: Swelling, redness third toe, dropped wood on it TECHNIQUE: Imaging protocol: Radiologic exam of the right toes. Views: Minimum 2 views. COMPARISON: No relevant prior studies available. FINDINGS: Bones/joints: The distal interphalangeal joints show subchondral cystic changes. No dislocation or definite fracture. Soft tissues: Moderate soft tissue edema of the right third toe. No soft tissue gas. IMPRESSION: Findings compatible with contused third toe. Dictated and Authenticated by: Hebert Fritz MD. Ordering:JINNY Thomas MD Quality:SDOH Health Related Social Needs: No Data to Display PFSH All Active Problems (Updated 05/08/23 @ 11:41 by STEPHEN Bishop) Cellulitis of third toe of right foot (Acute) Septic olecranon bursitis of left elbow (Acute) Status post debridement DOS: 09/23/2021 Ischemic cardiomyopathy (Chronic) Sepsis (Acute) Cellulitis of arm, left (Acute) Rupture of right proximal biceps tendon (Acute 03/07/20) Depression with anxiety (Acute) Hypertension (Chronic) Hx of non-ST elevation myocardial infarction (NSTEMI) (Acute) BPH (benign prostatic hyperplasia) (Chronic) Status post coronary artery bypass graft (Acute) Cardiomyopathy (Acute) Hyperlipidemia (Acute) Surgical History S/P CABG x 4 Family History Daughter Cancer hematologic malignancy - the patient is not sure what type Social History Smoking/Tobacco Use Status: Never Smoking risk assessment performed?: Yes Alcohol Intake: current Alcohol Intake frequency: a few times a month Alcohol type: beer Drug use: Socially Substance use type: marijuana Current gender identity: male Do you feel safe at home: Yes Do you feel safe in your relationship?: Yes
--- NOTE | 2023-05-08 09:45 | DI.RAD_ITS ---
Exam(s) XR TOE RT THIRD EXAM: XR TOE RT THIRD CLINICAL HISTORY: swelling, redness third toe, dropped wood on it. TECHNIQUE: 2D digital imaging was performed. COMPARISON: CR,XR XR FOOT LT COMPLETE from 12/14/2021 FINDINGS: Lateral view is limited by overlap of the toes. BONES: No acute fracture is present. No bony destructive lesion is seen. JOINTS: No dislocation present. Degenerative changes of the disc interphalangeal joints. SOFT TISSUE: Swelling. IMPRESSION: Soft tissue swelling. DATA REPOSITORY: RADIATION DOSE DELIVERED:
--- NOTE | 2023-05-08 10:58 | DI.VRAD_ITS ---
PROCEDURE INFORMATION: Exam: XR Right Toe(s) Exam date and time: 05/08/2023 10:11 AM Age: 78 years old Clinical indication: Other: Swelling, redness third toe, dropped wood on it TECHNIQUE: Imaging protocol: Radiologic exam of the right toes. Views: Minimum 2 views. COMPARISON: No relevant prior studies available. FINDINGS: Bones/joints: The distal interphalangeal joints show subchondral cystic changes. No dislocation or definite fracture. Soft tissues: Moderate soft tissue edema of the right third toe. No soft tissue gas. IMPRESSION: Findings compatible with contused third toe. Dictated and Authenticated by: Hebert Fritz MD. Ordering:JINNY Thomas MD
[2023-05-08 11:50] VITALS: BP 159/75; PULSE 69; RESP 18; TEMP 37; O2SAT 98
--- NOTE | 2023-05-08 12:00 | NUR.NOTE ---
Referral faxed to [facility] Podiatry for foot infection within 1 week. Nursing Note:
== END 2023-05-08 11:59 | disposition home or self-care (01) ==
PROVIDERS: Emergency Provider Physician Assistant; PCP Internal Medicine
DX: L03.031 Cellulitis of right toe (principal); I42.9 Cardiomyopathy, unspecified; Z95.1 Presence of aortocoronary bypass graft; Z79.82 Long term (current) use of aspirin
CPT/HCPCS: 99283; 73660

== ENCOUNTER 2023-08-15 09:02 | Outpatient (REF) | payer MEDICARE, SELFPAY ==
[2023-08-15 19:50] LABS: ALT 32 U/L (16-63); AST 22 U/L (15-37); Albumin 3.8 g/dL (3.4-5.0); Alkaline Phosphatase 72 U/L (46-116); Anion Gap 7.9 mmol/L (3-11); BUN 18 mg/dL (7-18); Bilirubin, Total 0.7 mg/dL (0.2-1.0); CO2 28.1 mmol/L (21.0-32.0); Calcium 9.5 mg/dL (8.5-10.1); Calculated LDL 88 mg/dL (<100); Chloride 104 mmol/L (98-107); Cholesterol 146 mg/dL (<200); Estimated GFR 76.56 (mL/min/1.73m2); Glucose 104 mg/dL (74-106); HDL Cholesterol 42 mg/dL (40-60); Potassium 4.8 mmol/L (3.5-5.1); Sodium 140 mmol/L (136-145); Total Protein 7.3 g/dL (6.4-8.2); Triglyceride 84 mg/dL (<150)
[2023-08-16 20:26] LABS: PSA, Diagnostic 4.9 ng/mL (<=6.5)
== END 2023-08-15 09:03 | disposition home or self-care (01) ==
LOC: NCHCN 09:02
PROVIDERS: PCP Internal Medicine; Visit Provider Nurse Practitioner Family
DX: I10 Essential (primary) hypertension (principal); E78.5 Hyperlipidemia, unspecified; N40.1 Benign prostatic hyperplasia with lower urinary tract symptoms
CPT/HCPCS: 80053; 80061; 84153

== ENCOUNTER → 2023-08-16 03:16 | Outpatient (CLI) | payer MEDICARE, SELFPAY ==
--- NOTE | 2023-08-16 08:45 | DI.US_ITS ---
Exam(s) US AAA DIAGNOSTIC EXAM: US AAA DIAGNOSTIC CLINICAL HISTORY: I71.9 Aortic aneurysm of unspecified site, w/o rutpure COMPARISON: No exams were available for comparison FINDINGS: Abdominal Aorta: Proximal: 2.1 x 1.8 cm Mid: 1.8 x 1.8 cm Distal: 1.6 x 1.6 cm Iliac's: Right: 0.8 x 0.9 cm Left: 0.8 x 0.9 cm Atherosclerotic calcification is present. IMPRESSION: No evidence of abdominal aortic aneurysm. DATA REPOSITORY:
== END ==
PROVIDERS: PCP Internal Medicine; Visit Provider Nurse Practitioner Family
DX: I71.9 Aortic aneurysm of unspecified site, without rupture (principal)
CPT/HCPCS: 76775

== ENCOUNTER → 2023-09-27 01:08 | Outpatient (CLI) | payer MEDICARE, SELFPAY ==
--- NOTE | 2023-09-27 12:33 | DI.US_ITS ---
APPROVED REPORT EXAM: Comprehensive 2D, Doppler, and color-flow Echocardiogram Patient Location: Out-Patient [facility] Leader: Mounika Enriquez RDCS (AE) Indications: Nonrheumatic mitral valve insufficiency, Mitral valve regurgitation Other Information Study Quality: Adequate Conclusion Normal left ventricular wall thickness and chamber size. Ejection fraction is 55 to 60%. Wall motio n is normal Right ventricle is normal in size and function Both atria are normal in size Aortic valve is trileaflet and sclerotic with mild regurgitation. There is no aortic stenosis Thickened mitral leaflets, calcium on tip of the anterior leaflet. Mild to moderate mitral regurgita tion Moderate tricuspid regurgitation. Estimated right ventricular systolic pressure is normal at 23 mmHg Ascending aorta measures 3.9 cm Wall motion Left Ventricle The left ventricle is normal size. The left ventricular systolic function is normal. The left ventric ular ejection fraction is within the normal range. There is normal left ventricular wall thickness. T here is normal LV segmental wall motion. There is no ventricular septal defect visualized. LVEF is 56 %. Right Ventricle The right ventricle is normal size. The right ventricular systolic function is normal. Atria The left atrium size is normal. The right atrium size is normal. The interatrial septum is intact wit h no evidence for an atrial septal defect. Aortic Valve The Aortic valve is sclerotic. Aortic valve is trileaflet. There is no aortic valvular stenosis. Mil d aortic regurgitation. Mitral Valve Thickened mitral leaflets. Localized calcium on anterior mitral leaflet tip No evidence of mitral ankur ve stenosis. Mild to moderate mitral regurgitation. Tricuspid Valve The tricuspid valve is normal in structure. There is no tricuspid valve stenosis. Moderate tricuspid regurgitation. The RVSP is 23.1 mmHg. Pulmonic Valve The pulmonary valve is normal in structure. There is no pulmonic valvular stenosis. Trace pulmonic re gurgitation. Great Vessels The aortic root is normal in size. The ascending aorta is mildly dilated. Aortic arch is not well vis ualized. IVC is normal in size and collapses >50% with inspiration. Pericardium There is no pericardial effusion. 2D Dimensions IVSD d PLAX 1.10 cm M: 0.6-1.2 Ao Root d 3.76 cm M: 3.1 - 3.7 LVPW d PLAX 1.10 cm M: 0.6 - 1.2 Ao Asc Diam d 3.86 cm M: 2.6 - 3.4 LVID d PLAX 4.03 cm M: 4.2 - 5.8 LVDs 2.86 cm M: 2.5 - 4.0 LV EF Teichholz 56.3 % FS 29.05 % LV EDV (Teich) 71.3 mL LV ESV (Teich) 31.1 mL M-Mode TAPSE 1.73 cm (M/F) >1.7 Auto EF LV EDV A4C 108.8 mL LV EDV A2C 113.1 mL LV EDV BP 111.2 mL LV ESV A4C 49.6 mL LV ESV A2C 52.1 mL LV ESV BP 50.1 mL LVEF(%) A4C 54.4 % LVEF(%) A2C 53.9 % LVEF(%) BP 54.9 % LV SV A4C 59.2 ml LV SV A2C 60.9 ml LV SV BP 61.1 ml LV CO A4C 3.8 L/min LV CO A2C 3.7 L/min LV CO BP 3.8 L/min HR A4C 64.06 BPM HR A2C 61.12 BPM LV EDV Index (BP) LA Volume LA Length A4C 6.1 cm LA Length A2C 5.5 cm LA Area A4C s 22.66 cm2 LA Area A2C s 17.42 cm2 LA Vol A4C A-L 71.84 mL LA Vol A2C A-L 46.88 mL LA Vol Biplane A-L 61.0 mL LA Vol/BSA A4C A-L LA Vol/BSA A2C A-L LA Vol/BSA BP A-L 33.0 mL/m2 LA Vol A4C MOD 68.1 mL LA Vol A2C MOD 45.0 mL LA Vol BP MOD 58.0 mL RA Volume RA Area A4C 16.8 cm2 RA ESV A4C (A-L) 49.5mL RA Vol/BSA A4C A-L RA Length A4C 4.9 cm RA ESV A4C (MOD) 47.1mL LV Diastology MV E' medial 0.092 (>0.07 m/s) MV E Vmax 0.70 (0.4-1.3 m/s) MV E/E' MED 7.65 (<14) MV A Vmax 0.80 (0.4-1.3 m/s) MV E' lateral 0.082 (>0.1 m/s) E/A Ratio 0.9 MV E/E' LAT 8.56 (<14) MV E' Average 0.087 m/s MV E/E'(average) 8.08 Aortic Valve AoV Vmax 1.41 m/s LVOT Vmax 0.84 m/s AoV Peak Grad 8.0 mmHg LVOT Peak Grad 2.9 mmHg AoV Area (Vmax) 1.93 cm2 LVOT VTI 0.198 m AoV VTI 0.296 m LVOT Mean Grad 1.5 mmHg AoV Mean Ankush. 0.99 m/s LVOT SV 64.10 mL AoV Mean Grad 4.4 mmHg LVOT Diam s 2.00 cm AoV Area (VTI) 2.16 cm2 AV Regurg Peak Gr. 7.95 mmHg Velocity Ratio 0.60 Mitral Valve MV DT 199 (160-240 msec) MV Vmax TIPS 0.72 m/s MV Mean Grad 0.9 (<2mmHg) MV VTI 0.277 m Pulmonary Valve PV Vmax 1.06 (0.5-1.5 m/s) RVOT Vmax 0.55 m/s PV Peak Grad 4.5 mmHg RVOT Peak Gr. 1.2 mmHg PV Mean Ankush 0.64 m/s RVOT VTI 0.116 m PV Mean Grad 2.0 mmHg RVOT Mean Gr. 0.7 mmHg Tricuspid Valve RA Pressure 3.00 mmHg TR Vmax 2.24 m/s TV S' 0.12 m/s TR Peak Grad 20.0 mmHg RVSP (TR) 23.1 mmHg
== END ==
LOC: DI 01:08
PROVIDERS: PCP Internal Medicine; Visit Provider Nurse Practitioner Family
DX: I34.0 Nonrheumatic mitral (valve) insufficiency (principal)
CPT/HCPCS: 93306

== ENCOUNTER 2024-06-12 15:56 | Outpatient (REF) | payer MEDICARE, SELFPAY ==
[2024-06-12 20:03] LABS: Bilirubin Negative (Negative); Blood Trace-intact (Negative); Clarity Clear (Clear); Glucose Negative (Negative); Ketones Negative (Negative); Leukocyte Esterase Negative (Negative); Nitrite Negative (Negative); Specific Gravity 1.015 (1.005-1.025); Urobilinogen 0.2 mg/dL (Up to 0.2)
[2024-06-12 20:24] LABS: Epithelial Cells Rare HPF (Negative); Other Cells Rare Transitional (Negative); RBC 0-2 HPF (0-2); WBC 0-2 HPF (0-5)
[2024-06-12 20:25] LABS: Bacteria Rare HPF (Negative); C & S Indicated? No; Casts Negative LPF (Negative); Crystals Negative HPF (Negative); Mucus Negative (Negative)
== END 2024-06-12 15:57 | disposition home or self-care (01) ==
LOC: NCHCN 15:56
PROVIDERS: PCP Internal Medicine; Visit Provider Nurse Practitioner Family
DX: R36.1 Hematospermia (principal)
CPT/HCPCS: 81003; 81015

== ENCOUNTER 2024-08-06 19:20 | Outpatient (REF) | payer MEDICARE, MEDICAID, SELFPAY ==
[2024-08-06 19:49] LABS: ALT 32 U/L (16-63); AST 29 U/L (15-37); Albumin 3.6 g/dL (3.4-5.0); Alkaline Phosphatase 72 U/L (46-116); Anion Gap 5.6 mmol/L (3-11); BUN 28 mg/dL (7-18); Bilirubin, Total 0.5 mg/dL (0.2-1.0); CO2 27.4 mmol/L (21.0-32.0); Calcium 9.1 mg/dL (8.5-10.1); Calculated LDL 89 mg/dL (<100); Chloride 106 mmol/L (98-107); Cholesterol 142 mg/dL (<200); Estimated GFR 76.08 (mL/min/1.73m2); Glucose 105 mg/dL (74-106); HDL Cholesterol 42 mg/dL (>or=40); Potassium 5.2 mmol/L (3.5-5.1); Sodium 139 mmol/L (136-145); Triglyceride 59 mg/dL (<150)
== END 2024-08-06 19:21 | disposition home or self-care (01) ==
LOC: NCHCN 19:20
PROVIDERS: PCP Internal Medicine; Visit Provider Nurse Practitioner Family
DX: E78.5 Hyperlipidemia, unspecified (principal)
CPT/HCPCS: 80053; 80061